=== PATIENT | female | born 1935 | race Caucasian/White ===

== ENCOUNTER 2017-02-22 08:32 | Inpatient (IN) | payer MEDICARE, BC ==
[~2017-02-22] VITALS: Ht 170.2 cm; Wt 63.9 kg
[2017-02-22] VITALS (7 sets, daily range): BP systolic 120–154; BP diastolic 50–58; PULSE 82–89; RESP 18; TEMP 96.5–97.6; O2SAT 88–97; Ht 170.2 cm; Wt 63.9 kg
[~2017-02-22 08:32] MED LIST: ALBU18HF2 ORAL INH; AMLO5TAB2 PO; ATOR40TA64 PO; CLOP75TA PO; DOCU-168 PO; FURO20TA4 PO; GUAI-782 PO; LEVO750T20 PO; LOSA50TA52 PO; MAGN400O4 PO; METO25TA6 PO; OMEP40CA PO; POTA20TA69 PO; PRED20TA PO
--- OUTSIDE RECORDS SUMMARY | 2017-02-22 08:36 | XMS REPORT | Continuity of Care Document ---
Author Author [facility] Organization [facility] Address Unknown Phone Unavailable Support Name Relationship Address Phone FRITZ JAVED MD Caregiver [address] [place] [address] [place] [address] Unavailable ERNESTO FUCHS MD Caregiver [address] [place] [id number] Unavailable FELIX BARRERA DO Caregiver [address] [place] [address] Unavailable NARCISA RODRIGUEZ MD Caregiver [address] [place] [address] [employer] [place] [address] Unavailable ALEJA ROJAS Next Of Kin [address] [place] [address] Insurance Providers Guarantor Ana Marte Address [address] [place] [address] Email [email or web address] Payer Medicare Policy Number [id number] Subscriber's Name Ana Marte Relationship 18 Self Effective Date [facility] Policy Number [id number] Subscriber's Name EstuardoEarle pickardpat Fritz Relationship 18 Self Group Number [id number] Advance Directives Directive Response Recorded Date/Time Advanced Directives Type None 12/24/16 1:01am Ordered Resuscitation Status Full Code 12/24/16 3:34am Resuscitation Documents on File No 12/28/16 12:41pm DPOA for Healthcare Only Yes 12/28/16 12:41pm Living Will No 12/28/16 12:41pm Advanced Directive or Resuscitation Comments SEDATED 12/24/16 6:36am Problems Active Problems Medical Problem Onset Date Status Acute respiratory failure Unknown Acute Acute respiratory failure with hypoxia Unknown Acute Anemia Unknown Chronic Congestive heart failure Unknown Acute Congestive heart failure Unknown Acute Constipation Unknown Acute 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 Chronic 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 Unknown Chronic Diastolic heart failure Unknown Chronic Febrile illness, acute Unknown Acute GERD (gastroesophageal reflux disease) Unknown Chronic Gastroparesis Unknown Hyperkalemia Unknown Resolved Hyperlipidemia Unknown Chronic Hypertension Unknown Chronic Hypoxia Unknown Acute Leukocytosis Unknown Acute Pneumonia Unknown Acute Psoriasis Unknown Chronic RSV infection Unknown Acute Retro-orbital pain of left eye Unknown Acute Right lower lobe pneumonia Unknown Acute Severe sepsis Unknown Resolved Steroid-induced hyperglycemia Unknown Acute Ulcer of upper gastrointestinal tract Unknown Urinary retention Unknown Acute Surgical Problem Onset Date Status History of renal stent Unknown Chronic S/P AVR Unknown Chronic Past Problems Medical Problem Onset Date Bronchitis Unknown Bronchitis Unknown Bronchospasm Unknown Hypoxemia Unknown Respiratory distress Unknown Medications Current Home Medications Medication Dose Units Route Directions Days Qty Instructions Start Date Albuterol Sulfate (Ventolin Hfa 90 Mcg/Actuation) 18 Gm Hfa.aer.ad 2 Puff Oral Inhalation Every 4 Hours as needed for Shortness Of Air/Wheezing 1 Inhaler 12/21/16 Amlodipine Besylate 5 Mg Tablet 5 Mg Oral Daily 07/08/15 Atorvastatin Calcium 40 Mg Tablet 40 Mg Oral Bedtime 12/21/16 Clopidogrel Bisulfate (Plavix) 75 Mg Tablet 75 Mg Oral Daily Docusate Sodium (Colace) 100 Mg Capsule 100 Mg Oral Twice A Day for Constipation 60 Capsule 01/02/17 Furosemide 20 Mg Tablet 20 Mg Oral Twice A Day 10/09/15 Guaifenesin/Dextromethorphan (Mucinex Dm Er 600-30 Mg Tablet) 1 Each Tab.er.12h 1 Tab Oral Every 12 Hours 20 Tablet 01/02/17 Levofloxacin (Levaquin) 750 Mg Tablet 750 Mg Oral Every Other Day for Pneumonia 2 01/02/17 Losartan Potassium 50 Mg Tablet 50 Mg Oral Daily for Hypertension 30 Tablet 01/02/17 Magnesium Hydroxide (Milk Of Magnesia) 400 Mg/5 Ml Oral.susp 30 Ml Oral Daily as needed for Constipation 1 Bottle 01/02/17 Metoprolol Tartrate 25 Mg Tablet 25 Mg Oral Twice Daily With Meals for Hypertension 60 Tablet 01/02/17 Omeprazole (Prilosec) 40 Mg Capsule.dr 40 Mg Oral Daily 07/08/15 Potassium Chloride 20 Meq Tab.prt.sr 20 Meq Oral Twice A Day 11/01 Prednisone 20 Mg Tablet 40 Mg Oral Give With Breakfast for Pneumonia/ Bronchospasm 20 Tablet Take 2 (20 mg) tablets, by mouth, once a day with breakfast. 01/02/17 Past Home Medications Medication Directions Ordered Status Azithromycin 250 Mg Tablet, 1 Pack Oral As Directed 12/21/16 Discontinued Calcium Carb & Cit/Vitamin D3 (Calcium + D3 Er Tablet) 1 Each Tablet.er, 1 Tab Oral Daily 07/08/15 Discontinued Metoprolol Tartrate 25 Mg Tablet, 12.5 Mg Oral Twice Daily With Meals Discontinued Pantoprazole Sodium (Protonix) 40 Mg Tablet.dr, 40 Mg Oral Daily 02/21/10 Discontinued Social History Social History Problem Response Recorded Date/Time Onset Date Status Reason for Hospitalization Acute respiratory failure with hypoxia 01/02/2017 1:50pm Not Applicable Not Applicable Hx Substance Use No 12/24/2016 3:47am Not Applicable Not Applicable Hx Alcohol Use No 12/24/2016 3:47am Not Applicable Not Applicable Has the pt used tobacco in the last 12 months No 12/24/2016 6:37am Not Applicable Not Applicable Tobacco Usage none 11/10/2015 11:09am Not Applicable Not Applicable Query Response Start Date Stop Date Smoking Status Never smoker Hospital Discharge Instructions Instructions: Care Instructions: Reason for Hospitalization: Acute respiratory failure with hypoxia I was in the hospital because (patient own words): SEDATED Discharge Diet: Low sodium Discharge Activity: As tolerated Follow Up Appointments: Dr Barrera in 1 week pt will make own appointment Pending Lab / Results: No Pending Lab Patient Instructions: Use Acapella 4 times a day for 10 days, then as needed for congestion. Take Levaquin 750mg on 01/03 and 01/05. Wound/Incision Care: n/a Durable Medical Equipment: O2 at 3L with rest/sleeping; 5L with ambulation. Pain Management/Treatment: Tylenol as needed Expected Signs/Symptoms: Improvement of breathing and functional status Notify Physician If: Temp > 100.4. Increased difficulty breathing. During Business Hours:: Please call the physician's office at After Business Hours:: Please call [phone] and have the ammonia operator page the physician. Condition at time of discharge: Good Plan of Care Discharge Date 01/02/17 5:28pm Disposition 01 DISCHARGED HOME, SELF-CARE Instructions/Education Provided Respiratory Syncytial Virus (GEN) Acute Bronchitis (ED) Hypoxia (ED) Prescriptions See Medication Section Care Plan and Goals See Discharge Instructions Section Functional Status Query Response Date Recorded Mobility Status Ambulatory January 02, 2017 1:50pm Assistive Devices Standard Walker January 02, 2017 1:50pm Activity Limitations Shortness of breath Cough January 02, 2017 1:50pm Feeding Ability Independent January 02, 2017 1:50pm Toileting Ability Assist January 02, 2017 1:50pm Grooming Ability Independent January 02, 2017 1:50pm Dressing Ability Assist January 02, 2017 1:50pm Driving Ability Dependent January 02, 2017 1:50pm Housework Ability Assist January 02, 2017 1:50pm Meal Preparation Ability Assist January 02, 2017 1:50pm Stair Climbing Ability Assist January 02, 2017 1:50pm Ability to complete ADL's impeded by No change January 02, 2017 1:50pm Cognitive/Perceptual Impairments Impaired vision January 02, 2017 1:50pm Allergies, Adverse Reactions, Alerts Allergen Type Severity Reaction Status Last Updated Benazepril Adverse Reaction Mild CAUSES DRY MOUTH, COUGH Active 12/24/16 Telithromycin Allergy Severe SWELLING OF FACE Active 12/24/16 Immunizations Query Response on File Recorded Date/Time Hx Influenza Vaccination Y 10/07/2015 12/24/16 6:37am Hx Pneumococcal Vaccination N sep 2015 12/24/16 6:37am Hx Influenza Vaccination Y 10/07/2015 12/24/16 6:37am Influenza Vaccine Hx fall 201512/26/16 12:00pm Vital Signs Acute Vital Signs Vital Response Date/Time Temperature (Fahrenheit) 95.8 deg F (96.8 - 99.1) 01/02/2017 7:51am Temperature (Calculated Celsius) 35.79719 degrees C (36.0 - 37.3) 01/02/2017 7:51am Pulse Rate (adult) 86 bpm (60 - 100) 01/02/2017 11:44am Respiratory Rate 20 breaths/min (10 - 20) 01/02/2017 8:00am O2 Sat by Pulse Oximetry 91 % (90 - 100) 01/02/2017 7:51am Oxygen Delivery Method Nasal Cannula 01/01/2017 8:08am Oxygen Delivery Method Nasal Cannula 01/02/2017 7:51am Oxygen Flow Rate 3.00 L/min 01/02/2017 11:44am Fraction of Inspired Oxygen (FIO2) 35 % 01/01/2017 3:03am Blood Pressure 151/68 mm Hg 01/02/2017 7:51am Blood Pressure Source Automatic Cuff 01/02/2017 7:51am Height (Feet) 5 feet 01/02/2017 10:45am Height (Inches) 5.00 inches 01/02/2017 10:45am Weight (Kilograms) 65.500 kg 01/02/2017 8:00am Body Mass Index (BMI) 24.3 12/24/2016 9:34am Results Laboratory Results Test Name Result Units Flags Reference Collection Date/Time Result Date/ Time Comments White Blood Count 9.0 T/MM3 4.5-11.0 01/02/2017 4:47am 01/02/2017 5: 18am Red Blood Count 3.88 M/MM3 L 4.00-5.20 01/02/2017 4:47am 01/02/2017 5: 18am Hemoglobin 10.1 GM/DL L 12-16 01/02/2017 4:47am 01/02/2017 5:18am Hematocrit 33.6 % L 36-46 01/02/2017 4:47am 01/02/2017 5:18am Mean Corpuscular Volume 86.6 UM3 80-100 01/02/2017 4:47am 01/02/2017 5: 18am Mean Corpuscular Hemoglobin 26.0 UUG 26-34 01/02/2017 4:47am 2016 5:18am Mean Corpuscular Hemoglobin Concent 30.1 GM/DL L 31-37 01/02/2017 4:47am 01/02/2017 5:18am RDW Standard Deviation 50.9 FL H 36.9-50.2 01/02/2017 4:47am 01/02/2017 5:18am Platelet Count 124 T/MM3 L 130-400 01/02/2017 4:47am 01/02/2017 5:18am Mean Platelet Volume 10.9 UM3 9.4-12.4 01/02/2017 4:47am 01/02/2017 5: 18am Neutrophils (%) (Auto) 82.9 % H 33-66 12/30/2016 5:00am 12/30/2016 6: 09am Lymphocytes (%) (Auto) 6.6 % L 23-45 12/30/2016 5:00am 12/30/2016 6: 09am Monocytes (%) (Auto) 7.9 % 0-9.0 12/30/2016 5:00am 12/30/2016 6:09am Eosinophils (%) (Auto) 0.2 % 0-4 12/30/2016 5:00am 12/30/2016 6:09am Basophils (%) (Auto) 0.1 % 0-2 12/30/2016 5:00am 12/30/2016 6:09am Immature Granulocyte % (Auto) 2.3 % H 0.0-0.5 12/30/2016 5:00am 2016 6:09am Absolute Neutrophils (auto) 11.7 T/MM3 H 1.8-7.7 12/30/2016 5:00am 12/30 6:09am Absolute Lymphocytes (auto) 0.9 T/MM3 L 1-4.8 12/30/2016 5:00am 2016 6:09am Absolute Monocytes (auto) 1.1 T/MM3 H 0-0.8 12/30/2016 5:00am 2016 6:09am Absolute Eosinophils (auto) 0.0 T/MM3 0-0.5 12/30/2016 5:00am 2016 6:09am Absolute Basophils (auto) 0.0 T/MM3 0-0.2 12/30/2016 5:00am 12/30/2016 6:09am Absolute Immature Granulocyte (auto 0.32 T/MM3 H 0.00-0.03 12/30/2016 5: 00am 12/30/2016 6:09am Neutrophils % (Manual) 87.0 % H 33-66 01/02/2017 4:47am 01/02/2017 6: 35am Band Neutrophils % 2.0 % 0-6 01/01/2017 4:47am 01/01/2017 6:29am Lymphocytes % (Manual) 10.0 % L 23-45 01/02/2017 4:47am 01/02/2017 6: 35am Monocytes % (Manual) 5.0 % 0-9.0 01/01/2017 4:47am 01/01/2017 6:29am Eosinophils % (Manual) 1.0 % 0-4 01/01/2017 4:47am 01/01/2017 6:29am Metamyelocytes % 3.0 % H 0-0 01/02/2017 4:47am 01/02/2017 6:35am Myelocytes % 1.0 % H 0-0 01/01/2017 4:47am 01/01/2017 6:29am Band Neutrophils # 0.2 T/MM3 01/01/2017 4:47am 01/01/2017 6:29am Absolute Neutrophils (Manual) 7.8 T/MM3 H 1.8-7.7 01/02/2017 4:47am 08/2017 6:35am Lymphocytes # (Manual) 0.9 T/MM3 L 1-4.8 01/02/2017 4:47am 01/02/2017 6: 35am Monocytes # (Manual) 0.5 T/MM3 0-0.8 01/01/2017 4:47am 01/01/2017 6: 29am Eosinophils # (Manual) 0.1 T/MM3 0-0.5 01/01/2017 4:47am 01/01/2017 6: 29am Metamyelocytes # 0.3 T/MM3 01/02/2017 4:47am 01/02/2017 6:35am Myelocytes # 0.1 T/MM3 01/01/2017 4:47am 01/01/2017 6:29am Red Cell Morphology Comment NORMAL 01/02/2017 4:47am 01/02/2017 6: 35am Anisocytosis 1+ 01/01/2017 4:47am 01/01/2017 6:29am Poikilocytosis 1+ 12/29/2016 4:34am 12/29/2016 5:38am Icterus Index < 2 0-7 01/02/2017 4:47am 01/02/2017 5:27am Chemistry Specimen Hemolysis < 15 0-25 01/02/2017 4:47am 01/02/2017 5 :27am 0-25: Specimen Exhibited No Hemolysis. Turbidity < 20 0-20 01/02/2017 4:47am 01/02/2017 5:27am Sodium Level 139 MEQ/L 134-144 01/02/2017 4:47am 01/02/2017 5:27am Potassium Level 3.6 MEQ/L 3.6-5 01/02/2017 4:47am 01/02/2017 5:27am Chloride Level 105 MEQ/L 98-107 01/02/2017 4:47am 01/02/2017 5:27am Carbon Dioxide Level 27 MEQ/L 22-30 01/02/2017 4:47am 01/02/2017 5: 27am Anion Gap 7 MEQ/L 5-15 01/02/2017 4:47am 01/02/2017 5:27am Blood Urea Nitrogen 30.0 MG/DL H 7-17 01/02/2017 4:47am 01/02/2017 5: 27am Creatinine 0.7 MG/DL D 0.7-1.2 01/02/2017 4:47am 01/02/2017 5:29am BUN/Creatinine Ratio 43 RATIO H 6-26 01/02/2017 4:47am 01/02/2017 5: 27am Glomerular Filtration Rate Calc 80 01/02/2017 4:47am 01/02/2017 5: 27am Glucose Level 89 MG/DL 65-110 01/02/2017 4:47am 01/02/2017 5:27am Calculated Osmolality 273 MOSM/KG 261-280 01/02/2017 4:47am 01/02/2017 5:27am Calcium Level 8.7 MG/DL 8.4-10.2 01/02/2017 4:47am 01/02/2017 5:27am Total Bilirubin 0.70 MG/DL 0.20-1.30 12/26/2016 6:2412/26/2016 6: 50am Alkaline Phosphatase 92 U/L 38-126 12/26/2016 6:12/26/2016 6:50am Total Protein 7.3 G/DL 6.3-8.2 12/26/2016 6:12/26/2016 6:50am Albumin 3.7 G/DL 3.5-5.0 12/26/2016 6:12/26/2016 6:50am Globulin 3.6 G/DL 2.4-3.6 12/26/2016 6:12/26/2016 6:50am Albumin/Globulin Ratio 1.0 RATIO L 1.1-2.2 12/26/2016 6:12/26/2016 6:50am Aspartate Amino Transf (AST/SGOT) 30 U/L 14-36 12/26/2016 6:2016 6:50am Alanine Aminotransferase (ALT/SGPT) 34 U/L 9-52 12/26/2016 6:2412/26 6:50am LC-Mja-T-Type Natriuretic Peptide 3280 PG/ML H 0-175 12/24/2016 1:57am 12/24/2016 2:22am Rule in cut points: <50 years old=450; 50-75 years old=900; >75 years old=1800; When utilizing ProBNP rule-in cut points, adjustment for impaired renal function is typically not required. Magnesium Level 2.3 MG/DL 1.6-2.3 12/31/2016 5:03am 12/31/2016 5:59am Plasma Lactate 1.9 MMOL/L 0.6-2.2 12/24/2016 7:04am 12/24/2016 7:23am Procalcitonin < 0.05 NG/ML 12/24/2016 1:57am 12/24/2016 2:49am PCT < /=0.5 ng/mL - sepsis not likely; PCT >0.5 and </=2 ng/mL - sepsis possible; PCT >2 ng/mL - sepsis likely; PCT >/=10 ng/mL - systemic inflammatory response - sepsis or septic shock highly indicated. Iron Level 35 UG/DL L 37-170 12/29/2016 4:34am 12/31/2016 1:29am Total Iron Binding Capacity 345 UG/DL 261-497 12/29/2016 4:34am 2016 12:54am Percent Iron Saturation 10 % 9-55 12/29/2016 4:34am 12/31/2016 1:29am Ferritin 72.9 NG/ML 11-264 12/29/2016 4:34am 12/31/2016 2:07am Hemoglobin A1c 5.8 % L 6.1-7.9 12/25/2016 4:11am 12/25/2016 6:28am < 6.0 NON-DIABETIC RANGE 6.1-7.9 [facility] TARGET RANGE >8.0 ACTION SUGGESTED Oxygen Delivery Method (LAB) ROOM AIR 12/24/2016 7:04am 12/24/2016 7:12am Venous Blood pH 7.170 L 7.31-7.41 12/24/2016 7:04am 12/24/2016 7:12am Venous Blood Partial Pressure CO2 88 MMHG H 40-52 12/24/2016 7:04am 11/2016 7:12am Venous Blood Partial Pressure O2 52 MMHG 40-52 12/24/2016 7:04am 2016 7:12am Venous Blood HCO3 32 MEQ/L H 22-26 12/24/2016 7:04am 12/24/2016 7:12am Venous Blood Total Carbon Dioxide 34.8 MEQ/L 12/24/2016 7:04am 2016 7:12am Venous Blood Base Excess 1.2 MMOL/L -2.0-2.0 12/24/2016 7:04am 2016 7:12am Venous Blood Oxygen Saturation 76.0 % 12/24/2016 7:04am 12/24/2016 7: 12am Influenza Type A Antigen NEGATIVE NEGATIVE 12/24/2016 1:57am 2016 2:33am Negative for Flu A protein antigen. Assay sensitivity is 90%. Influenza Type B Antigen NEGATIVE NEGATIVE 12/24/2016 1:57am 2016 2:33am Negative for Flu B protein antigen. Assay sensitivity is 90%. Adenovirus (PCR) NEGATIVE NEGATIVE 12/24/2016 11:39am 12/24/2016 1: 12pm Coronavirus Type 229E (PCR) NEGATIVE NEGATIVE 12/24/2016 11:39am 11/2016 1:12pm Coronavirus Type HKU1 (PCR) NEGATIVE NEGATIVE 12/24/2016 11:39am 11/2016 1:12pm Coronavirus Type NL63 (PCR) NEGATIVE NEGATIVE 12/24/2016 11:39am 11/2016 1:12pm Coronavirus Type OC43 (PCR) NEGATIVE NEGATIVE 12/24/2016 11:39am 11/2016 1:12pm Human Metapneumovirus (PCR) NEGATIVE NEGATIVE 12/24/2016 11:39am 11/2016 1:12pm Enterovirus/Rhinovirus (PCR) NEGATIVE NEGATIVE 12/24/2016 11:39am 11/2016 1:12pm Influenza Virus Type A (PCR) NEGATIVE NEGATIVE 12/24/2016 11:39am 11/2016 1:12pm Influenza Virus Type B (PCR) NEGATIVE NEGATIVE 12/24/2016 11:39am 11/2016 1:12pm Parainfluenza Type 1 (PCR) NEGATIVE NEGATIVE 12/24/2016 11:39am 12/24 1:12pm Parainfluenza Type 2 (PCR) NEGATIVE NEGATIVE 12/24/2016 11:39am 12/24 1:12pm Parainfluenza Type 3 (PCR) NEGATIVE NEGATIVE 12/24/2016 11:39am 12/24 1:12pm Parainfluenza Type 4 (PCR) NEGATIVE NEGATIVE 12/24/2016 11:39am 12/24 1:12pm Respiratory Syncytial Virus (PCR) DETECTED A NEGATIVE 12/24/2016 11: 39am 12/24/2016 1:12pm Bordetella parapertussis DNA (PCR) NEGATIVE NEGATIVE 12/24/2016 11: 39am 12/24/2016 1:12pm Chlamydia pneumoniae DNA (PCR) NEGATIVE NEGATIVE 12/24/2016 11:39am 12/24/2016 1:12pm Mycoplasma pneumoniae (PCR) NEGATIVE NEGATIVE 12/24/2016 11:39am 11/2016 1:12pm Glucometer 103 mg/dL 65-110 01/02/2017 11:35am 01/02/2017 11:38am Microbiology Results Procedure Source Organism/Result Collection Date/Time Result Date/Time Result Status Blood Culture Peripheral/Iv Start NO GROWTH AFTER 5 DAYS 12/24/2016 11: 56am 12/29/2016 12:01pm Final Name: ANA MARTE Unit #: [id number] : 1935 Sex: F Admit Date: 12/24/16 Loc / Svc: MED Discharge Date: DIAGNOSTIC IMAGING REPORT [facility] [id number] ITS.REASON: F/U pleural effusions PROCEDURE: CHEST 2-VIEWS UPRIGHT (PA \T\ LAT) Encounter: Initial COMPARISON: December 30, 2016 FINDINGS: Improving aeration of the lung bases with decreasing pleural effusions, particularly on the right. No new infiltrates. No pneumothorax. Heart size and mediastinal contours are stable. Pulmonary vascular congestion has improved. Impression: Decreasing pleural effusions. . Procedures No known history of procedures. Encounters Encounter Location Arrival/Admit Date Discharge/Depart Date Attending Provider Discharged Inpatient [facility] 12/24/16 3:28am 01/02/17 5:28pm FRITZ JAVED MD Departed Emergency Room [facility] 12/21/16 10:37am 12/21/16 1: 03pm NEYDA PADRON MD
--- OUTSIDE RECORDS SUMMARY | 2017-02-22 08:36 | XMS REPORT | Continuity of Care Document ---
Author Author [facility] Address Unknown Phone Unavailable Allergies Active Description Code Type Severity Reaction Onset Reported/Identified Relationship to Patient Clinical Status Yes benazepril HCl benazepril HCl Drug Allergy Unknown DRY COUGH 01/21/2013 Yes Telithromycin Telithromycin Drug Allergy Severe SWELLING OF FACE 01/21/2013 Medications Problems Date Dx Coded Attending Type Code Diagnosis Diagnosed By 01/22/2013 Preeti ERNST, Daquan R F 038.9 SEPTICEMIA NOS 01/22/2013 Daquan Álvarez MD R F 272.4 HYPERLIPIDEMIA NEC/NOS 01/22/2013 Daquan Álvarez MD R F 276.7 HYPERPOTASSEMIA 01/22/2013 Daquan Álvarez MD R F 410.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,SUBENDO INFARCT, INITIAL EPIS 01/22/2013 Daquan Álvarez MD R 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 01/22/2013 Daquan Álvarez MD R F 414.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 01/22/2013 Daquan Álvarez MD R F 416.8 CHR PULMON HEART DIS NEC 01/22/2013 Daquan Álvarez MD R F 424.0 MITRAL VALVE DISORDER 01/22/2013 Daquan Álvarez MD R F 427.31 ATRIAL FIBRILLATION 01/22/2013 Daquan Álvarez MD R F 428.0 CONGESTIVE HEART FAILURE NOS 01/22/2013 Daquan Álvarez MD R F 428.33 ACUTE CHRONIC DIASTOLIC HRT FAILURE 01/22/2013 Daquan Álvarez MD R F 440.0 AORTIC ATHEROSCLEROSIS 01/22/2013 Daquan Álvarez MD R F 440.1 RENAL ARTERY ATHEROSCLER 01/22/2013 Daquan Álvarez MD R F 443.9 PERIPH VASCULAR DIS NOS 01/22/2013 Daquan Álvarez MD R F 486 PNEUMONIA, ORGANISM NOS 01/22/2013 Daquan Álvarez MD R F 496 CHR AIRWAY OBSTRUCT NEC 01/22/2013 Daquan Álvarez MD R F 518.84 ACUTE AND CHRONIC RESPIRATORY FAILURE 01/22/2013 Daquan Álvarez MD R F 530.81 ESOPHAGEAL REFLUX 01/22/2013 Daquan Álvarez MD R F 536.3 GASTROPARESIS 01/22/2013 Daquan Álvarez MD R F 995.92 SEVERE SEPSIS 01/22/2013 Daquan Álvarez MD 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 01/22/2013 Daquan Álvarez MD R F E878.1 ABN REACT-ARTIF IMPLANT 01/22/2013 Daquan Álvarez MD E942.2 ADV EFF ANTILIPEMICS 01/22/2013 Daquan Álvarez MD V15.81 HX OF PAST NONCOMPLIANCE 01/22/2013 Daquan Álvarez MD V15.82 HISTORY OF TOBACCO USE 01/22/2013 Dqauan Álvarez MD R F V45.81 AORTOCORONARY BYPASS 01/22/2013 Daquan Álvarez MD V46.2 SUPPLEMENTAL OXYGEN 01/22/2013 Daquan Álvarez MD V49.86 DO NOT RESUSCITATE STATUS Procedures Code Description Performed By Performed On 00.41 PROCEDURE ON TWO VESSELS Augustus Kirkpatrick MD 01/22/2013 00.46 INSERTION OF TWO VASCULAR STENTS Augustus Kirkpatrick MD 01/22/2013 39.50 ANGIOPLASTY OF OTHER NON-CORONARY VESSEL(S) Augustus Kirkpatrick MD 01/22/2013 39.90 INSEJ [id number] PERIPHERAL NON-CORONARY VES Augustus Kirkpatrick MD 01/22/2013 88.42 CONTRAST AORTOGRAM Topher Ryan MD 01/22/2013 88.45 CONTRAST RENAL ARTERIOGR Topher Ryan MD 01/22/2013 88.53 LT HEART ANGIOCARDIOGRAM Topher Ryan MD 01/22/2013 88.56 CORONAR ARTERIOGR-2 CATH Topher Ryan MD 01/22/2013 88.72 DX ULTRASOUND-HEART Topher Ryan MD 01/22/2013 Encounters ACCT No. Visit Date/Time Discharge Status Pt. Type Provider Facility Loc./Unit Complaint [id number] 11/03/2014 13:07:00 2013 13:07:00 DIS Outpatient Connor ERNST, Topher Bertrand [facility] W.RAC [id number] 01/22/2013 18:03:00 2012 14:44:00 DIS Inpatient Preeti ERNST, Daquan [facility] W.3CE [id number] 01/21/2013 07:37:00 2012 09:34:00 DIS Emergency Jesús ERNST, Jose Elias Fritz [facility] W.EDS [id number] 04/01/2011 11:45:00 Inpatient [id number] 12/31/2010 21:25:00 Inpatient
--- OUTSIDE RECORDS SUMMARY | 2017-02-22 08:36 | XMS REPORT | Continuity of Care Document ---
Author Author [facility] Organization [facility] Address Unknown Phone Unavailable Support Name Relationship Address Phone BELEM ZAFAR DO Caregiver [address] [place] [address] FELIX BARRERA DO Caregiver [address] [facility] [address] [place] [address] SAI RYAN MD Caregiver [address] [place] [phone] PRESTON BETANCOURT MD Caregiver [address] [place] [phone] ALEJA ROJAS Next Of Kin [address] [place] [address] Insurance Providers Payer Name Policy Number Subscriber Name Relationship Medicare [id number] Ana Marte 18 Self [facility] [id number] Ana Marte 18 Self Advance Directives Directive Response Recorded Date/Time Ordered Resuscitation Status Full Code, unverified 11/23/14 11:57am Resuscitation Documents on File No 11/23/14 12:16pm Chief Complaint and Reason for Visit Chief Complaint EXACERBATION CHF, HYPOXIA Reason for Visit Congestive heart failure Hypoxia Hyperlipidemia Problems Medical Problems Problem Onset Date Status Congestive heart failure Unknown Active Hypoxia Unknown Active Hyperlipidemia Unknown Active Medications Medication Dose Route Sig Days/Qty Instructions Order Date Discontinued Date Status Aspirin 1 Tab PO DAILY 07/04/10 Active Metoprolol Succinate 1 Tab PO DAILY 07/04/10 Active Potassium Chloride 1 Tab PO TWICE A DAY 07/04/10 Active Simvastatin 1 Tab PO DAILY 07/04/10 Active Sucralfate 1 G PO NEEDED 07/04/10 Active Pantoprazole Sodium 40 Mg PO DAILY 02/21/10 07/03/10 Discontinued Ferrous Sulfate 1 Tab PO DAILY BEST WITH FOOD. 11/23/14 Active Furosemide 1 Tab PO DAILY 11/23/14 Active Cephalexin 1 Cap PO TWICE A DAY 5 Days 11/24/14 Active Social History Social History Problem Response Recorded Date/Time Hx Substance Use No 11/23/2014 11:30am Hx Alcohol Use No 11/23/2014 11:30am Has the pt used tobacco in the last 12 months No 11/23/2014 12:20pm Tobacco Usage none 11/23/2014 4:14pm Query Response Start Date Stop Date Smoking Status Former smoker Hospital Discharge Instructions Instructions: Care Instructions: Reason for Hospitalization: PULMONARY EDEMA I was in the hospital because (patient own words): "I WAS COLLECTING WATER" Discharge Diet: LOW SODIUM, FLUID RESTRICTION OF 2L PER DAY Discharge Activity: TOLERATED Follow Up Appointments: FOLLOW UP APPOINTMENT WITH IS ON Thursday11-30-14 AT 12:30 PM. Patient Instructions: SHOULD YOUR SYMPTOMS RETURN YOU SHOULD CONTACT DR RYAN OR DR BARRERA THROUGH THE OFFICE OR RETURN TO THE ED FOR EMERGENT EVALUATION Condition at time of discharge: Good Dismissal Weight: 3.655 Bilirubin Level: 10.0 Congenital Heart Disease Screening Result: Pass Plan of Care Discharge Date 11/24/14 1:39pm Disposition 01 DISCHARGED HOME, SELF-CARE [place] [facility] [place]estive Heart Failure Congestive Heart Failure (Alternative Therapy) Edema (Alternative Therapy) DI for Oxygen Therapy -- Adult How to Perform Oxygen Therapy via Cannula Prescriptions See Medications Section Functional Status Query Response Date Recorded Physical Hygiene Self November 23, 2014 11:30am Disabilities Hearing Visual November 23, 2014 11:52am Devices Used None November 23, 2014 11:52am Dressing Self November 23, 2014 11:30am Ambulation Self November 23, 2014 11:30am Diet Self November 23, 2014 11:30am Mental Status Alert Oriented November 23, 2014 11:53am Disabilities Hearing Visual November 23, 2014 11:52am Devices Used None November 23, 2014 11:52am Physical Hygiene Self November 23, 2014 11:30am Dressing Self November 23, 2014 11:30am Ambulation Self November 23, 2014 11:30am Diet Self November 23, 2014 11:30am Allergies, Adverse Reactions, Alerts Allergen Type Severity Reaction Status Last Updated Benazepril Adverse Reaction Mild CAUSES DRY MOUTH, COUGH Active 11/23/14 Amlodipine Adverse Reaction Mild CAUSES DRY MOUTH, COUGH Active 11/23/14 Telithromycin Allergy Severe SWELLING OF FACE Active 11/23/14 Immunizations Name Given Type Hx Influenza Vaccination Y AUG 2014 Historical Hx Pneumococcal Vaccination N 2008 Historical Hx Influenza Vaccination Y AUG 2014 Historical Vital Signs Acute Vital Signs Vital Response Date/Time Temperature (Fahrenheit) 96.6 deg F (96.8 - 99.1) Temperature (Calculated Celsius) 35.69437 degrees C (36.0 - 37.3) Temperature Source Oral Pulse Rate (adult) 98 bpm (60 - 100) Respiratory Rate 16 breaths/min (10 - 20) O2 Sat by Pulse Oximetry 86 % (90 - 100) Oxygen Delivery Method Nasal Cannula Oxygen Flow Rate 2.00 L/min Height 5 ft 7 in Weight 163 lb Body Mass Index 25.0 kg/m^2 Results Test Source Date Result Interp. Ref. Range Comments Influenza Type B Antigen November 24, 2014 11:14am Negative - Negative for Flu B protein antigen. Assay sensitivity is90%. Influenza Type A Antigen November 24, 2014 11:14am Negative - Negative for Flu A protein antigen. Assay sensitivity is90%. Activated Partial Thromboplast Time November 23, 2014 10:30am 33.7 SEC N 24-36 Alanine Aminotransferase (ALT/SGPT) November 23, 2014 10:30am 29 U/L N 9- 52 Albumin November 23, 2014 10:30am 4.4 G/DL N 3.5-5.0 Albumin/Globulin Ratio November 23, 2014 10:30am 1.3 RATIO N 1.1-2.2 Alkaline Phosphatase November 23, 2014 10:30am 113 U/L N 38-126 Anion Gap November 24, 2014 5:17am 4 MEQ/L L 5-15 Aspartate Amino Transf (AST/SGOT) November 23, 2014 10:30am 32 U/L N 14- 36 B-Type Natriuretic Peptide December 30, 2010 11:10am 428 PG/ML H 15-100 BUN/Creatinine Ratio November 24, 2014 5:17am 33 RATIO H 6-26 Band Neutrophils # December 31, 2010 7:03pm 0.2 T/MM3 - Band Neutrophils % December 31, 2010 7:03pm 2.0 % N 0-6 Basophils # (Auto) November 24, 2014 5:17am 0.1 T/MM3 N 0-0.2 Basophils # (Manual) December 31, 2010 7:03pm 0.2 T/MM3 N 0-0.2 Basophils % (Manual) December 31, 2010 7:03pm 2.0 % N 0-2 Basophils (%) (Auto) November 24, 2014 5:17am 0.4 % N 0-2 Blood Urea Nitrogen November 24, 2014 5:17am 23.0 MG/DL H 7-17 Calcium Level November 24, 2014 5:17am 8.5 MG/DL N 8.4-10.2 Calculated Osmolality November 24, 2014 5:17am 278 MOSM/KG N 261-280 Carbon Dioxide Level November 24, 2014 5:17am 38 MEQ/L H 22-30 Chemistry Specimen Hemolysis November 24, 2014 5:17am < 15 0-25 0-25: No Hemolysis.26-70: Slight Hemolysis - can falsely elevate K and Urine Protein. 71-285: Moderate Hemolysis - can falsely elevate K, Troponin I, CA 19-9, PTH, CSF GLucose, and Urine Protein, and can falsely decrease Phenytoin. 286-999: Gross Hemolysis - can falsely elevate K, Troponin I, CA 19-9, PTH, CSF Glucose, and Urine Protine, and can falsely decrease Phenytoin. Recommend specimen recollection. Chloride Level November 24, 2014 5:17am 99 MEQ/L N 98-107 Cholesterol Level May 28, 2009 8:45am 174 MG/DL N 132-199 Cholesterol/HDL Ratio May 28, 2009 8:45am 4.0 RATIO N 0-4.0 Creatine Kinase MB December 31, 2010 7:03pm 2.3 NG/ML N 0-3.4 Creatinine November 24, 2014 5:17am 0.7 MG/DL N 0.7-1.2 D-Dimer February 21, 2010 10:05am 271 NG/ML H 0-224 <224 NG/ML= PRESUMPTIVE NEGATIVE FOR PE OR DVT>224 NG/ML=ADDITIONAL EVALUATION FOR PE OR DVT RECOMMENDED Differential Total Cells Counted December 31, 2010 7:03pm 100 % - Eosinophils # (Auto) November 24, 2014 5:17am 0.1 T/MM3 N 0-0.5 Eosinophils # (Manual) November 23, 2014 10:30am 0.1 T/MM3 N 0-0.5 Eosinophils % (Manual) November 23, 2014 10:30am 1.0 % N 0-4 Eosinophils (%) (Auto) November 24, 2014 5:17am 1.0 % N 0-4 Globulin November 23, 2014 10:30am 3.5 G/DL N 2.4-3.6 Glomerular Filtration Rate Calc November 24, 2014 5:17am 80 - Glucose Level November 24, 2014 5:17am 159 MG/DL H 65-110 HDL Cholesterol Direct May 28, 2009 8:45am 39 MG/DL L 40-60 Hematocrit November 24, 2014 5:17am 38.3 % N 36-46 Hemoglobin November 24, 2014 5:17am 12.0 GM/DL N 12-16 Icterus Index November 24, 2014 5:17am < 2 0-7 Immature Granulocyte # (Auto) November 24, 2014 5:17am 0.04 T/MM3 H 0.00- 0.03 Immature Granulocyte % (Auto) November 24, 2014 5:17am 0.3 % N 0.0-0.5 LDL Cholesterol, Calculated May 28, 2009 8:45am 111.8 N 66-159 Lab Scanned Report January 24, 2011 10:20pm LAB TEST FORM REQUEST [id number] - Lymphocytes # (Auto) November 24, 2014 5:17am 0.8 T/MM3 L 1-4.8 Lymphocytes # (Manual) November 23, 2014 10:30am 0.6 T/MM3 L 1-4.8 Lymphocytes % (Manual) November 23, 2014 10:30am 5.0 % L 23-45 Lymphocytes (%) (Auto) November 24, 2014 5:17am 6.2 % L 23-45 Magnesium Level November 23, 2014 10:30am 2.3 MG/DL N 1.6-2.3 Mean Corpuscular Hemoglobin November 24, 2014 5:17am 30.9 UUG N 26-34 Mean Corpuscular Hemoglobin Concent November 24, 2014 5:17am 31.3 GM/DL N 31-37 Mean Corpuscular Volume November 24, 2014 5:17am 98.7 UM3 N 80-100 Mean Platelet Volume November 24, 2014 5:17am 10.2 UM3 N 9.4-12.4 Metamyelocytes # February 22, 2010 5:00am 0.1 T/MM3 - Metamyelocytes % February 22, 2010 5:00am 1.0 % H 0-0 Monocytes # (Auto) November 24, 2014 5:17am 1.0 T/MM3 H 0-0.8 Monocytes # (Manual) November 23, 2014 10:30am 0.2 T/MM3 N 0-0.8 Monocytes % (Manual) November 23, 2014 10:30am 2.0 % N 0-9.0 Monocytes (%) (Auto) November 24, 2014 5:17am 7.0 % N 0-9.0 Myelocytes # February 22, 2010 5:00am 0.0 T/MM3 - Myelocytes % February 22, 2010 5:00am 0.0 % N 0-0 QY-Isi-G-Type Natriuretic Peptide November 23, 2014 10:30am 4010 PG/ML H 0-175 Rule in cut points: <50 years old=450; 50-75 years old=900; >75 years old=1800; When utilizing ProBNP rule-in cut points, adjustment for impaired renal function is typically not required. Neutrophils # (Auto) November 24, 2014 5:17am 11.6 T/MM3 H 1.8-7.7 Neutrophils # (Manual) November 23, 2014 10:30am 10.3 T/MM3 H 1.8-7.7 Neutrophils % (Manual) November 23, 2014 10:30am 92.0 % H 33-66 Neutrophils (%) (Auto) November 24, 2014 5:17am 85.1 % H 33-66 Platelet Count November 24, 2014 5:17am 176 T/MM3 N 130-400 Potassium Level November 24, 2014 5:17am 3.9 MEQ/L N 3.6-5 Prothromb Time International Ratio November 23, 2014 10:30am 1.08 N 0.81- 1.09 THERAPUTIC RANGE=2.00-3.00 FOR ANTI-THROMBOSIS THERAPUTIC RANGE=2.50- 3.50 FOR IMPLANTED VALVE RDW Standard Deviation November 24, 2014 5:17am 51.2 FL H 36.9-50.2 Red Blood Count November 24, 2014 5:17am 3.88 M/MM3 L 4.00-5.20 Sodium Level November 24, 2014 5:17am 141 MEQ/L N 134-144 Stool Occult Blood January 27, 2010 8:41pm Test not performedPATIENT ON MEDS FOR COLONOSCOPY CANNOT PERFORM TEST - Tests Not Done February 21, 2010 10:25am Not done - Has specimen been collected/obtained? Y Thyroid Stimulating Hormone (TSH) November 23, 2014 10:30am 1.08 MIU/L N 0.47-4.68 Total Bilirubin November 23, 2014 10:30am 0.90 MG/DL N 0.20-1.30 Total Protein November 23, 2014 10:30am 7.9 G/DL N 6.3-8.2 Triglycerides Level May 28, 2009 8:45am 116 MG/DL N 35-135 Troponin I November 23, 2014 3:53pm 0.035 ng/ml N 0-0.12 Turbidity November 24, 2014 5:17am < 20 0-20 Urine Bacteria November 23, 2014 10:25am None seen - Has specimen been collected/obtained? Y Urine Bilirubin November 23, 2014 10:25am Negative - Has specimen been collected/obtained? Y Urine Blood November 23, 2014 10:25am Trace-intact H - Has specimen been collected/obtained? Y Urine Collection Type November 23, 2014 10:25am Cleancatch-midstream - Has specimen been collected/obtained? Y Urine Color November 23, 2014 10:25am Yellow - Has specimen been collected/obtained? Y Urine Glucose (UA) November 23, 2014 10:25am Negative - Has specimen been collected/obtained? Y Urine Ketones November 23, 2014 10:25am Negative - Has specimen been collected/obtained? Y Urine Leukocyte Esterase November 23, 2014 10:25am Negative - Has specimen been collected/obtained? Y Urine Mucus November 23, 2014 10:25am Present - Has specimen been collected/obtained? Y Urine Nitrite November 23, 2014 10:25am Negative - Has specimen been collected/obtained? Y Urine Protein November 23, 2014 10:25am 1+ H - Has specimen been collected/obtained? Y Urine RBC November 23, 2014 10:25am 0-1 /HPF - Has specimen been collected/obtained? Y Urine Specific [place] November 23, 2014 10:25am >=1.030 H - Has specimen been collected/obtained? Y Urine Squamous Epithelial Cells November 23, 2014 10:25am 0-5 - Has specimen been collected/obtained? Y Urine Turbidity November 23, 2014 10:25am Clear - Has specimen been collected/obtained? Y Urine Urobilinogen November 23, 2014 10:25am 0.2 EU/DL - Has specimen been collected/obtained? Y Urine WBC November 23, 2014 10:25am 0-1 /HPF - Has specimen been collected/obtained? Y Urine pH November 23, 2014 10:25am 5.5 - Has specimen been collected/ obtained? Y VLDL Cholesterol May 28, 2009 8:45am 23.2 MG/DL N 0-28 White Blood Count November 24, 2014 5:17am 13.6 T/MM3 H 4.5-11.0 Blood Culture Blood February 21, 2010 11:00am NO GROWTH AFTER 5 DAYS Gram Stain Sputum-Expectorated Sputum February 21, 2010 10:40am Helicobacter pylori Rapid Urease Gastric Biopsy July 04, 2010 1:01pm Name: ANA MARTE Unit #: [id number] : 1935 Sex: F DISCHARGE SUMMARY Admit Date: 11/23/14 Report #: [id number] General Date Date DATE: 11/24/14 TIME: 11:30 Attending Physician Belem Zafar DO Admitting Physician Belem Zafar DO Consulting Physician Sai Ryan MD Admitting Diagnosis Problems: (1) Congestive heart failure Status: Acute (2) Hypoxia Status: Acute--DUE TO CHF EXACERBATION/PULMONARY EDEMA (3) Hyperlipidemia Status: Chronic Discharge Diagnosis SAME Procedures NONE Laboratory Laboratory Laboratory Tests Test 11/23/14 11/24/14 15:53 05:17 Troponin I 0.035 ng/ml Chemistry Specimen Hemolysis < 15 < 15 White Blood Count 13.6 T/MM3 Red Blood Count 3.88 M/MM3 Hemoglobin 12.0 GM/DL Hematocrit 38.3 % Mean Corpuscular Volume 98.7 UM3 Mean Corpuscular Hemoglobin 30.9 UUG Mean Corpuscular Hemoglobin 31.3 GM/DL Concent RDW Standard Deviation 51.2 FL Platelet Count 176 T/MM3 Mean Platelet Volume 10.2 UM3 Immature Granulocyte % (Auto) 0.3 % Neutrophils (%) (Auto) 85.1 % Lymphocytes (%) (Auto) 6.2 % Monocytes (%) (Auto) 7.0 % Eosinophils (%) (Auto) 1.0 % Basophils (%) (Auto) 0.4 % Immature Granulocyte # (Auto) 0.04 T/MM3 Neutrophils # (Auto) 11.6 T/MM3 Lymphocytes # (Auto) 0.8 T/MM3 Monocytes # (Auto) 1.0 T/MM3 Eosinophils # (Auto) 0.1 T/MM3 Basophils # (Auto) 0.1 T/MM3 Turbidity < 20 Sodium Level 141 MEQ/L Potassium Level 3.9 MEQ/L Chloride Level 99 MEQ/L Carbon Dioxide Level 38 MEQ/L Anion Gap 4 MEQ/L Blood Urea Nitrogen 23.0 MG/DL Creatinine 0.7 MG/DL Glomerular Filtration Rate 80 Calc BUN/Creatinine Ratio 33 RATIO Glucose Level 159 MG/DL Calculated Osmolality 278 MOSM/KG Calcium Level 8.5 MG/DL Icterus Index < 2 History of Present Illness Ana is an 79-year-old female who just started seeing Dr. Felix Barrera for primary care. Yesterday she underwent a heart catheterization here at [facility] in the care of Dr. Ryan. Family reports finding showed 50% blockage. Patient has a history of CHF and she routinely takes oral Bumex they report 2 times a day. Yesterday, however, she did not take the Bumex because she underwent the heart cath. Family reports sometimes after procedures or surgeries, she has a tendency to go into a CHF exacerbation because of missing dosages. Patient reports feeling the symptoms intensified because she was required to lie flat after the heart catheterization. Overnight, around 1:30 AM, patient developed some dry heaving and was short of air. She complained of her left arm hurting. This morning family had her brought to [facility] for evaluation. They state she looks "puffy." Sats were noted to be in the 70s by ER nursing report. Vital signs in the ER are documented as blood pressure 180/76, temperature 97.6, respiratory rate 28, sats 96% on 2 L of oxygen. Labwork was obtained showing a mildly elevated white count of 11.2. Chest x-ray was performed showed some congestion but no obviously identifiable infiltrates. Troponin was 0.028. EKG showed sinus rhythm at 81 beats per minute. Patient was given aspirin 3 or 24 mg orally, Zofran 4 mg IV and Bumex 1 mg IV for diuresis. She was admitted inpatient under the care of the hospitalist service for exacerbation of CHF. Expected length of stay moderate, anticipating greater than 2 midnights. Hospital Course PT WAS ADMITTED TO THE OUTPT UNIT UNDER THE HOSPITALIST SERVICE, SHE WAS GIVEN IV BUMEX BID AND DID DIURESE OVER 2L--DROPPED 2# OVERNIGHT. SHE DID HAVE A SLIGHTLY ELEVATED WBC COUNT. CXR AND UA WERE CLEAR, AND HER GROIN SITE LOOKS GOOD. SHE WAS AFEBRILE. WE DID GIVE A DOSE OF EMPIRIC ABX (ROCEPHIN ) DUE TO HER RECENT PROCEDURE. IN THE PAST WHEN THIS HAS HAPPENED PT HAS HAD TO GO HOME WITH O2 FOR A FEW WEEKS. SHE IS REALLY WANTING TO GO HOME AND FEELS SHE CAN MANAGE THERE WITH HOME O2. SHE HAS GOOD FAMILY SUPPORT WELL. WE DID GO AHEAD AND SET HER UP FOR HOME O2, AND A RX FOR KEFLEX WAS GIVEN WELL. SHE IS TO SEE DR RYAN NEXT WEEK--AN APPT WAS MADE. SHE IS TOLD BY ME THAT IF SHE CONTINUES TO WORSEN SHE SHOULD RETURN TO THE ED FOR EVALUATION. SHE COULD ALSO CONTACT DR RYAN OR DR BARRERA WELL. Problems: DVT Prophylaxis: SCD'S GI Prophylaxis: Protonix Code Status Full Code, unverified Home Meds Active Scripts Cephalexin (Keflex)500 Mg Capsule1 Cap PO BID 5 Days Prov:BELEM ZAFAR DO 11/24/14 Reported Medications Furosemide 40 Mg Tablet1 Tab PO DAILY 11/23/14 Ferrous Sulfate (Iron)325 Mg Capsule.er1 Tab PO DAILY BEST WITH FOOD. 11/23/14 Sucralfate (Carafate)1 G Tablet1 G PO PRN Ref 0 07/04/10 Simvastatin 40 Mg Tablet1 Tab PO DAILY Ref 0 07/04/10 Potassium Chloride 20 Meq Tab.prt.sr1 Tab PO BID Ref 0 07/04/10 Metoprolol Succinate 50 Mg Tab.sr.24h1 Tab PO DAILY Ref 0 07/04/10 Aspirin (Aspir 81)81 Mg Tablet.dr1 Tab PO DAILY Ref 0 07/04/10 Discharge Disposition STABLE Copies To 1: FELIX BARRERA DO Copies To 2: SAI RYAN MD, CARRIE DO Nov 24, 2014 11:36 Procedures No known history of procedures. Encounters Encounter Location Date/Time Discharged Inpatient [facility] 11/23/14 1:15pm Departed [facility] 11/22/14 6:51am Recent Diagnosis Congestive heart failure Hypoxia Hyperlipidemia
[2017-02-22] MEDS ORDERED: ALBUTEROL/IPRATROPIUM INHAL. 2.5mg-0.5mg/3ml Neb. AEROSOL ONE (09:15)
[2017-02-22 09:17] LABS: BASOPHILS # (AUTO) 0.1 T/MM3 (0-0.2); BASOPHILS % (AUTO) 0.8 % (0-2); EOSINOPHILS # (AUTO) 0.1 T/MM3 (0-0.5); HCT - HEMATOCRIT 35.7 % (36-46); HGB - HEMOGLOBIN 10.9 GM/DL (12-16); IMMATURE GRANULOCYTE # (AUTO) 0.04 T/MM3 (0.00-0.03); IMMATURE GRANULOCYTE % (AUTO) 0.6 % (0.0-0.5); LYMPHOCYTES % (AUTO) 15.8 % (23-45); MEAN CORPUSCULAR HGB 27.6 UUG (26-34); MEAN CORPUSCULAR HGB CONC(MCHC 30.5 GM/DL (31-37); MEAN CORPUSCULAR VOLUME 90.4 UM3 (80-100); MEAN PLATELET VOLUME 9.8 UM3 (9.4-12.4); MONOCYTES # (AUTO) 0.7 T/MM3 (0-0.8); MONOCYTES % (AUTO) 11.2 % (0-9.0); NEUTROPHILS #(AUTO)-ABSOLUTE 4.4 T/MM3 (1.8-7.7); NEUTROPHILS % (AUTO) 70.6 % (33-66); RED BLOOD COUNT 3.95 M/MM3 (4.00-5.20); WBC - WHITE BLOOD COUNT 6.3 T/MM3 (4.5-11.0)
[2017-02-22] MEDS ORDERED: ALBU18HF2 ORAL INH (09:24)
[2017-02-22] MEDS ORDERED: GUAI120015 PO (09:24)
--- OUTSIDE RECORDS SUMMARY | 2017-02-22 09:24 | XMS REPORT | Continuity of Care Document ---
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53 LT HEART ANGIOCARDIOGRAM Topher Ryan MD 01/22/2013 88.56 CORONAR ARTERIOGR-2 CATH Topher Ryan MD 01/22/2013 88.72 DX ULTRASOUND-HEART Topher Ryan MD 01/22/2013 Encounters ACCT No. Visit Date/Time Discharge Status Pt. Type Provider Facility Loc./Unit Complaint [id number] 11/03/2014 13:07:00 2013 13:07:00 DIS Outpatient Connor ERNST, Topher Bertrand [facility] W.RAC [id number] 01/22/2013 18:03:00 2012 14:44:00 DIS Inpatient Preeti ERNST, Daquan Centeno [facility] W.3CE [id number] 01/21/2013 07:37:00 2012 09:34:00 DIS Emergency Jesús ERNST, Jose Elias Fritz [facility] W.EDS [id number] 04/01/2011 11:45:00 Inpatient [id number] 12/31/2010 21:25:00 Inpatient
[2017-02-22 09:25] LABS: ANION GAP 11 MEQ/L (5-15); BUN/CREATININE RATIO 26 RATIO (6-26); CALCIUM 8.1 MG/DL (8.4-10.2); CHLORIDE 99 MEQ/L (98-107); CO2 - CARBON DIOXIDE 31 MEQ/L (22-30); CREATININE 0.7 MG/DL (0.7-1.2); GLOMERULAR FILTRATION RATE 80; GLUCOSE 113 MG/DL (65-110); POTASSIUM 4.6 MEQ/L (3.6-5); SODIUM 141 MEQ/L (134-144)
--- OUTSIDE RECORDS SUMMARY | 2017-02-22 09:25 | XMS REPORT | Continuity of Care Document ---
Author Author [facility] Organization [facility] Address Unknown Phone Unavailable Support Name Relationship Address Phone BELEM ZAFAR DO Caregiver [address] [place] [address] FELIX BARRERA DO Caregiver [address] [facility] [address] [place] [address] SAI RYAN MD Caregiver [address] [place] [phone] PRESTON BETANCOURT MD Caregiver [address] [place] [phone] ALEJA ROJAS Next Of Kin [address] [place] [address] Insurance Providers Payer Name Policy Number Subscriber Name Relationship Medicare [id number] Ana Marte 18 Self [facility] [id number] Ana Marte 18 Self Advance Directives Directive [...] Disposition 01 DISCHARGED HOME, SELF-CARE Instructions/Education Provided [facility] Congestive Heart Failure Congestive Heart Failure (Alternative [...] F (96.8 - 99.1) Temperature (Calculated Celsius) 35.14265 degrees C (36.0 - 37.3) Temperature Source [...] 24, 2011 10:20pm LAB TEST FORM REQUEST [id number] - Lymphocytes # (Auto) November 24, 2014 [...] 22, 2010 5:00am 0.0 % N 0-0 FA-Cls-M-Type Natriuretic Peptide November 23, 2014 10:30am 4010 [...] Has specimen been collected/obtained? Y Urine Specific [place] November 23, 2014 10:25am >=1.030 H - [...] 2010 1:01pm Name: ANA MARTE Unit #: [id number] : 1935 Sex: F DISCHARGE SUMMARY Admit Date: 11/23/14 Report #: [id number] General Date Date DATE: 11/24/14 TIME: 11:30 [...] she underwent a heart catheterization here at [facility] in the care of Dr. [...] This morning family had her brought to [facility] for evaluation. They state she [...] procedures. Encounters Encounter Location Date/Time Discharged Inpatient 11/23/14 1:15pm Departed [facility] 11/22/14 6:51am Recent Diagnosis Congestive heart failure Hypoxia Hyperlipidemia
[2017-02-22] MEDS ORDERED: LOSA50TA52 PO (09:28)
[2017-02-22] MEDS ORDERED: METO25TA6 PO (09:28)
[2017-02-22] MEDS ORDERED: BENZ-16 PO (09:29)
[2017-02-22] MEDS ORDERED: CEFD300C3 PO (09:29)
--- NOTE | 2017-02-22 09:30 | NUR ---
RESP IMPROVED AFTER DUONEB.
--- NOTE | 2017-02-22 09:35 | NUR ---
ACTIVITY UP TO COMMODE FOR UA. ONLY VOIDED 45 CC CARL URINE
[2017-02-22 09:38] LABS: INFLUENZA A AG SCREEN NEGATIVE (NEGATIVE); INFLUENZA B AG SCREEN POSITIVE (NEGATIVE)
[2017-02-22 09:38] LABS: PROBNP 2680 PG/ML (0-175)
[2017-02-22 09:43] LABS: BLOOD, URINE TRACE-INTACT (NEGATIVE); COLOR,URINE YELLOW (YELLOW); LEUKOCYTE ESTERASE ,URINE NEGATIVE (NEGATIVE); NITRITE,URINE NEGATIVE (NEGATIVE); UROBILINOGEN,URINE 0.2 EU/DL (NORMAL)
[2017-02-22 09:55] LABS: MUCUS,URINE PRESENT
[2017-02-22 09:56] LABS: RBC,URINE 0-1 /HPF (0-3)
[2017-02-22 09:57] LABS: BACTERIA,URINE 2+ (NEGATIVE)
[2017-02-22 09:58] LABS: HYALINE CASTS, URINE 0-1 /LPF
--- NOTE | 2017-02-22 10:16 | ERPDOC ---
Departure Disposition Decision Date: Feb 22, 2017 Disposition Decision Time: 10:20 Disposition: 02 TO [facility] Impression Impression Impression: Primary Impression: Influenza B Severity: Severe Condition: Improved Seen By: Physician only Referrals: FELIX BARRERA DO (Family) Problems/Meds/Labs Reviewed?: Yes Medications reviewed and manag: Yes Follow up care ordered?: Yes (admit) Mental Status: Alert, Oriented Scripts Oseltamivir Phosphate (Tamiflu) 75 Mg Capsule 75 MG PO BID, #6 CAP Prov: ROSA ISELA SORIANO MD 02/24/17 HPI - Dyspnea General Chief Complaint: Dyspnea/Respdistress Stated Complaint: CONGESTION, WHEEZING Time Seen by Provider: 08:40 Source: patient, family (daughter), RN notes reviewed, old records Exam Limitations: no limitations HPI - Dyspnea Initial Comments This patient presents to the ER for dyspnea. She developed dyspnea and an increased cough several days ago. On 02/18/17 she was seen by her PCP, Dr Barrera and placed on Cefdinir. However she has not improved and this morning had an episode of severe dyspnea and came in for evaluation. Her cough is productive of yellow sputum. She states that she has noted some dark stools since starting the Cefdinir but read in the pamphlet that GI bleeding could be a side effect of the medication. Otherwise, she denies associated symptoms. No chest pain, no known fever or muscle aches, she had her flu shot last fall. She was recently here for ten days with RSV pneumonia and severe sepsis from 12/24/16 to 01/02/17. 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 Occurred At: home Onset/Timing: Rapid Duration: other (5 days) Pain/Severity Scale: Now: 0/10 Activities at Onset: none Prior Episodes/Possible Cause: no prior episodes Modifying Factors: IMPROVES WITH: oxygen, rest, WORSE WITH: activity Associated Symptoms: cough, shortness of breath, DENIES: chest pain, diaphoresis, fever/chills, headaches, loss of appetite, malaise, nausea/vomiting , rash, seizure, syncope, weakness Aspirin Treatment Today: contraindicated (on Plavix) Hx of Similar Symptoms: Yes (hx pneumonia) Allergies: Coded Allergies: telithromycin (Verified Allergy, Severe, SWELLING OF FACE, 02/22/17) benazepril (Verified Adverse Reaction, Mild, CAUSES DRY MOUTH, COUGH, ) PATIENT REPORTS Past History Patient Surgical History 1. Cholecystectomy 2. Colonoscopy/EGD 3. AVR, tissue valve 4. Right TKA 5. Bilateral cataract extractions 6. Carotid angiogram 11/22/14 Past Medical History Metabolic: hypercholesterolemia, hypertension ENMT: cataracts Cardiac: CAD, CHF, other (aortic valve replacement, PAD) Respiratory: pneumonia GI: GERD, ulcers Musculoskeletal: osteoarthritis, other (DJD) Integumentary: psoriasis Hematologic: anemia Surgical History General: EGD, colonoscopy, gallbladder Cardiac: cardiac bypass, cardiac cath, carotid endarterectomy, valve replacement Joint: knee (right TKA) Family History Family PMH: FOUND: [place], diabetes, hypertension Vaccines Hx Influenza Vaccination: Yes (10/07/2015) Hx Pneumococcal Vaccination: No (sep 2015) Social History Smoking Status: Former smoker Does patient use chewing tobac: No # of Packs/Tins per Day: 1 # of Years: 10 Second Hand Exposure: No Substance Use Type: does not use Marital Status: Housing: house Record Review Pertinent history updated: Yes Review of Systems Constitutional Constitutional: weight gain (slow, uncertain how much), DENIES: chills, fever Eyes General: DENIES: pain Lids/Accessories: DENIES: erythema Vision: DENIES: blurring ENMT Ears: DENIES: pain Hearing: DENIES: hearing loss Balance: DENIES: vertigo Sinuses: DENIES: congestion, rhinorrhea Mouth/Throat: DENIES: sore throat Teeth: DENIES: pain Cardiovascular Cardiac: dyspnea on exertion, see HPI, DENIES: chest pain Vascular: DENIES: pedal edema, unilateral swelling Pulmonary Respiratory: cough, dyspnea, pneumonia hx, see HPI, sputum, tachypnea GI Upper Abdomen: DENIES: heartburn/indigestion, nausea, vomiting Lower Abdomen: blood in stool (one stool, 2 days ago), see HPI, DENIES: constipation, diarrhea General: DENIES: dysuria, hematuria Female: DENIES: vaginal discharge Musculoskeletal General: DENIES: joint pain, pain Integumentary Skin: rash, DENIES: itching Comments chronic psoriasis Neurological General: DENIES: headache, memory disturbances, seizures, syncope Psychiatric Psychiatric: DENIES: anxiety, depression Endocrine Endocrine: DENIES: heat/cold intolerance Hematologic/Lymphatic Hematologic/Lymphatic: anemia Comments chronic anemia Allergic/Immunological Allergic/Immunoligical: DENIES: hives All other Systems All Other Systems: Reviewed and Negative Physical Exam General General Nourishment: well nourished, well developed, appears stated age, adult General Body Habitus: well groomed Vitals and Pain First Documented Vital Signs Date Time Temp Pulse Resp B/P Pulse Ox O2 Delivery O2 Flow Rate FiO2 02/22/17 08:32 98.3 94 22 175/72 70 Room Air 02/22/17 08:35 2.00 Weight: Kilograms: Height (feet): 5 Height (inches): 5.00 Triage Pain Scale: RN VS reviewed by Provider: Yes Comments tachypneic Normal Exams: Head: Normocephalic w/o trauma Eyes: Pupils are PERRLA w/ EOMI, No scleral icterus, irritation, or foreign bodies noted ENMT: No facial trauma, nasal exudates, pharyngeal erythema, or exudates are noted Dental: No fractured, loose, or missing teeth noted Neck: Full range of motion, without adenopathy, JVD, bruits or thyromegaly Abdomen: Bowel sounds positive, soft, non-tender, non-distended, no hepatosplenomegaly, masses or bruits noted Musculoskeletal: No tenderness, or deformity noted, good range of motion, all extremities Neurologic: Patient is alert, and oriented, cranial nerves, motor/sensory/ cerebellar, exams w/o gross deficits, to observation Psychiatric: Patient exhibits, appropriate attention, emotion and affect Respiratory (brief) Respiratory: FOUND: equal bilaterally, symmetrical, wheezes Comments tachypneic, decreased air flow, few exp wheezes Cardiovascular (brief) Cardiac: FOUND: click (hx valve replacement), regular rate, regular rhythm, NOT FOUND: pedal edema Differential Diagnoses Considering: Acute Respiratory Failure, CHF, Influenza, Pneumonia, Viral Syndrome Progress Results/Orders Orders Procedure Category Date Status Time Bmp - Basic Metabolic LAB 02/22/17 Complete Panel 08:47 Probnp LAB 02/22/17 Complete 08:47 Cbc W/Auto LAB 02/22/17 Complete Diff-Reflex Manual 08:47 Blood Culture ANDREIA 02/22/17 In Process 08:47 Troponin I W LAB 02/22/17 Complete Hemolysis Index 08:47 Influenza A/B Screen LAB 02/22/17 Complete 08:47 EKG EKG 02/22/17 Taken 08:47 Chest 1 View RAD 02/22/17 Resulted 08:47 Iv Lock (Ed Only) EDM 02/22/17 Transmitted 08:47 Oxygen Administration EDM 02/22/17 Transmitted 08:47 Albuterol/Ipratropium PHA 02/22/17 Complete (Duoneb) 09:15 Respiratory Panel, Pcr LAB 02/22/17 Complete 09:10 UA, LAB 02/22/17 Complete Dip&Micro(Complete) & 09:24 Procalcitonin LAB 02/22/17 Complete Lactate - Lactic Acid LAB 02/22/17 Complete Measure Vital Signs [facility] 02/22/17 Complete 10:19 Notify Adm Physician UCHE 02/22/17 Complete In Am 10:19 Oseltamivir (Tamiflu) PHA 02/22/17 Complete 21:00 [address] In Facility: ED ADM 02/22/17 Transmitted 10:23 Lab Results Laboratory Tests Test 02/22/17 09:02 02/22/17 09:08 02/22/17 09:24 Influenza Type A Antigen Negative Influenza Type B Antigen Positive White Blood Count 6.3T/MM3 Red Blood Count 3.95M/MM3 Hemoglobin 10.9GM/DL Hematocrit 35.7% Mean Corpuscular Volume 90.4UM3 Mean Corpuscular Hemoglobin 27.6UUG Mean Corpuscular Hemoglobin Concent 30.5GM/DL RDW Standard Deviation 57.4FL Platelet Count 183T/MM3 Mean Platelet Volume 9.8UM3 Immature Granulocyte % (Auto) 0.6% Neutrophils (%) (Auto) 70.6% Lymphocytes (%) (Auto) 15.8% Monocytes (%) (Auto) 11.2% Eosinophils (%) (Auto) 1.0% Basophils (%) (Auto) 0.8% Absolute Immature Granulocyte (auto 0.04T/MM3 Absolute Neutrophils (auto) 4.4T/MM3 Absolute Lymphocytes (auto) 1.0T/MM3 Absolute Monocytes (auto) 0.7T/MM3 Absolute Eosinophils (auto) 0.1T/MM3 Absolute Basophils (auto) 0.1T/MM3 Turbidity < 20 Sodium Level 141MEQ/L Potassium Level 4.6MEQ/L Chloride Level 99MEQ/L Carbon Dioxide Level 31MEQ/L Anion Gap 11MEQ/L Blood Urea Nitrogen 18.0MG/DL Creatinine 0.7MG/DL Glomerular Filtration Rate Calc 80 BUN/Creatinine Ratio 26RATIO Glucose Level 113MG/DL Calculated Osmolality 274MOSM/KG Calcium Level 8.1MG/DL Icterus Index < 2 Troponin I < 0.012ng/ml YR-Cww-G-Type Natriuretic Peptide 2680PG/ML Chemistry Specimen Hemolysis < 15 Urine Collection Type Urine Color Yellow Urine Turbidity Clear Urine pH 5.5 Urine Specific [place] >=1.030 Urine Protein 2+ Urine Glucose (UA) Negative Urine Ketones Negative Urine Blood Trace-intact Urine Nitrite Negative Urine Bilirubin Negative Urine Urobilinogen 0.2EU/DL Urine Leukocyte Esterase Negative Urine RBC 0-1/HPF Urine WBC 1-3/HPF Urine Squamous Epithelial Cells 5-10 Urine Bacteria 2+ Urine Hyaline Casts 0-1/LPF Urine Mucus Present Urine Culture Indicated Cult not indicated Adenovirus (PCR) Negative Bordetella parapertussis DNA (PCR) Negative Chlamydia pneumoniae DNA (PCR) Negative Coronavirus Type OC43 (PCR) Negative Coronavirus Type HKU1 (PCR) Negative Coronavirus Type 229E (PCR) Negative Coronavirus Type NL63 (PCR) Negative Human Metapneumovirus (PCR) Negative Influenza Virus Type A (PCR) Negative Influenza Virus Type B (PCR) Detected Mycoplasma pneumoniae (PCR) Negative Parainfluenza Type 1 (PCR) Negative Parainfluenza Type 2 (PCR) Negative Parainfluenza Type 3 (PCR) Negative Parainfluenza Type 4 (PCR) Negative Respiratory Syncytial Virus (PCR) Negative Enterovirus/Rhinovirus (PCR) Negative Medications Current ED Medications Albuterol/ Ipratropium (Duoneb) 3 ml O ONCE AEROSOL Last administered on t 09:04; Start 02/22/17 at 09:15; Stop 02/22/17 at 09:16; Status DC Progress Progress Initial O2 sats noted to be in the 70s on room air. O2 started and Duoneb given with improvement in symptoms and slowing of respiratory rate. Labs came back positive for influenza B. Hospitalist accepts admission. EKG EKG : Rate: 60-100 Rhythm: junctional [place]: normal QRS: normal Intervals: normal ST/T: non-specific changes Other: PVC, other (occ premature supraventricular complexes) Interpreted by: signing physician EKG Comments no change since 11/10/15 Consult/PCP Consult/PCP : Type of discussion: Admit Discussion/PCP Discussion Details [address] Dr Rivera. Discussed presentation, labs and imaging. Start on Tamiflu and admit. Xray Xray : Xray: CXR Portable Interpretation: Abnormal (mild pulmonary vascular prominence), Reviewed Written Report LINSEY DOHERTY MD Feb 22, 2017 10:16
[2017-02-22] MEDS: OSELTAMIVIR 75 MG CAPSULE PO SCH (10:35)
--- OUTSIDE RECORDS SUMMARY | 2017-02-22 10:47 | XMS REPORT | Continuity of Care Document ---
Author Author [facility] Organization [facility] Address Unknown Phone Unavailable Support Name Relationship Address Phone BELEM ZAFAR DO Caregiver [address] [place] [address] FELIX BARRERA DO Caregiver [address] [facility] [address] [place] [address] SAI RYAN MD Caregiver [address] [place] [phone] PRESTON BETANCOURT MD Caregiver [address] [place] [phone] ALEJA ROJAS Next Of Kin [address] [place] [id number] Insurance Providers Payer Name Policy Number Subscriber Name Relationship Medicare [id number] Ana Marte 16 Self [facility] [id number] Ana Marte 16 Self Advance Directives Directive [...] Disposition 01 DISCHARGED HOME, SELF-CARE Instructions/Education Provided [facility] Congestive Heart Failure Congestive Heart Failure (Alternative [...] F (96.8 - 99.1) Temperature (Calculated Celsius) 35.34734 degrees C (36.0 - 37.3) Temperature Source [...] 24, 2011 10:20pm LAB TEST FORM REQUEST [id number] - Lymphocytes # (Auto) November 24, 2014 [...] 22, 2010 5:00am 0.0 % N 0-0 ZV-Ddn-Z-Type Natriuretic Peptide November 23, 2014 10:30am 4010 [...] Has specimen been collected/obtained? Y Urine Specific [place] November 23, 2014 10:25am >=1.030 H - [...] 2010 1:01pm Name: ANA MARTE Unit #: [id number] : 1935 Sex: F DISCHARGE SUMMARY Admit Date: 11/23/14 Report #: [id number] General Date Date DATE: 11/24/14 TIME: 11:30 [...] she underwent a heart catheterization here at [facility] in the care of Dr. Ryan. [...] This morning family had her brought to [facility] for evaluation. They state she looks [...] procedures. Encounters Encounter Location Date/Time Discharged Inpatient [facility] 11/23/14 1:15pm Departed [facility] 11/22/14 6:51am Recent Diagnosis Congestive heart failure Hypoxia Hyperlipidemia
--- OUTSIDE RECORDS SUMMARY | 2017-02-22 10:47 | XMS REPORT | Continuity of Care Document ---
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 Visit Date/Time Discharge Status Pt. Type Provider Facility Loc./Unit Complaint [id number] 11/03/2014 13:07:00 2013 13:07:00 DIS Outpatient Connor ERNST, Topher Bertrand [facility] W.RAC [id number] 01/22/2013 18:03:00 2012 14:44:00 DIS Inpatient Preeti ERNST, Daquan Centeno [facility] W.3CE [id number] 01/21/2013 07:37:00 2012 09:34:00 DIS Emergency Jesús ERNST, Jose Elias Fritz [facility] W.EDS [id number] 04/01/2011 11:45:00 Inpatient [id number] 12/31/2010 21:25:00 Inpatient
--- NOTE | 2017-02-22 10:57 | NUR ---
REPORT TO JANINE ALEJANDRA
--- NOTE | 2017-02-22 11:05 | NUR ---
TRANSPORT PER WC ON O2 TO RM 146. TOLERATED ACTIVITY WELL.
--- NOTE | 2017-02-22 11:05 | NUR ---
ADMISSION TO MEDICAL VSS. 2L NC. DENIES SOA AND PAIN. FAMILY PRESENT. PATIENT VERY PLEASANT AND COOPERATIVE.
[2017-02-22] MEDS ORDERED: BENZONATATE 100 MG CAPSULE PO PRN (12:15)
[2017-02-22] MEDS ORDERED: FUROSEMIDE 20 MG/2 ML INJECTION IV ONE (12:15)
[2017-02-22] MEDS ORDERED: ONDANSETRON 4mg/2ml INJECTION IV PRN (12:15)
[2017-02-22] MEDS ORDERED: NORMAL SALINE 1,000 ML IV SCH (12:15)
[2017-02-22] MEDS ORDERED: ALBUTEROL/IPRATROPIUM INHAL. 2.5mg-0.5mg/3ml Neb. AEROSOL PRN (12:15)
[2017-02-22] MEDS ORDERED: ACETAMINOPHEN 500 MG TABLET PO PRN (12:15)
--- NOTE | 2017-02-22 12:41 | HPPDOC ---
PEPPER SULTANA 02/22/17 1142: HPI - Adult Date DATE: 02/22/17 TIME: 11:37 General Chief Complaint: respiratory failure with hypoxia, influenza B History of Present Illness Ana Marte is a very pleasant 82-year-old female who presented to [facility] [place] emergency department today, 02/22/17, for evaluation of dyspnea and progressive productive cough. Her daughter is present on the exam and contributes to the history. She reports that on 02/17/17 both she and her daughter started to have a cough. They were both seen by her PCP, Dr. Barrera, on 02/18 and both started on cefdinir for coverage of pulmonary antimicrobials. She states that despite the antibiotic, her cough continued to worsen with yellow sputum and she became more short of breath. She denies any known fevers or chills. No chest pain, abdominal pain, nausea, vomiting or dysuria. This morning she became extremely short of breath and was brought to [facility] [place] emergency room for further evaluation. Upon arrival, she was noted to be hypertensive with blood pressure 175/72, tachypneic with respiratory rate 32, tachycardic with heart rate 92 and hypoxic at 70% on room air. No documented temperature from arrival. She was immediately placed on 2L oxygen and given a DuoNeb breathing treatment which improved her saturations to 99%. Labs were obtained and were relatively unremarkable - WBC 6.3, hgb 10.9 (history of chronic anemia), Plt 183, Na+ 141, K+ 4.6, BUN 18, SCr 0.7 and Gl 113. BNP was elevated at 2630 and she admits to some recent weight gain despite decreased in her appetite. She states she weighs herself regularly but can not clarify how much weight gain. Troponin was negative at <0.012. Respiratory panel was positive for Influenza B. Chest x -ray showed increased pulmonary congestion without focal infiltrate noted and was reviewed by myself and Dr. Rivera. Due to her respiratory failure with hypoxia secondary to influenza B, severe sepsis and increased risk for deterioration due to her age and cardiac history, Dr. Rivera was contacted and she was admitted into inpatient status for further evaluation and close respiratory monitoring with respiratory support. Her length of stay is expected to exceed more than 2 over nights. Discussed patient code wishes on exam and patient requests to be DNR at this time. She is seem immediately upon her arrival to her room, #[id number], with her daughter and nurse at the bedside. She is alert and orientated x3 with a very pleasant disposition. She is noted to have increased respiratory effort with accessory muscle use despite 2L NC present. Cardiac exam reveals tachycardia with click consistent with history of aortic valve replacement. Lungs are diminished in right lower lobe with wheezing and bibasilar rales posteriorly and wheezing and rhonchi noted on anterior auscultation. Active wet, productive cough on exam. Abdomen is soft, nontender with active bowel sounds. 1+ pedal pulses bilaterally with no edema noted to lower extremities. Past Medical History Past Medical History 1. Hypertension 2. Hyperlipidemia 3. Psoriasis 4. Epigastric ulcer disease 5. Gastroparesis reflux disease 6. Anemia, chronic 7. Peripheral artery disease 8. Degenerative joint disease 9. 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 Osteoarthritis 6. Chronic anemia 7. Renal stent, indication unclear Surgical History Patient's Surgical History: 1. Cholecystectomy 2. Colonoscopy/EGD 3. AVR, tissue valve 4. Right TKA 5. Bilateral cataract extractions 6. Carotid angiogram 11/22/14 Current Medications Home Meds Reported Medications Benzonatate (Benzonatate) 100 Mg Capsule, 100 MG PO TID Y for COUGH 02/22/17 Cefdinir (Cefdinir) 300 Mg Capsule, 300 MG PO TID 02/22/17 Metoprolol Tartrate (Metoprolol Tartrate) 25 Mg Tablet, 25 MG PO BIDWM 02/22/17 Losartan Potassium (Losartan Potassium) 50 Mg Tablet, 50 MG PO DAILY 02/22/17 Guaifenesin (Mucinex) 1,200 Mg Tbbp.12hr, 1200 MG PO DAILY 02/22/17 Albuterol Sulfate (Ventolin HFA 90 mcg/actuation) 18 Gm Hfa.aer.ad, 2 PUFF ORAL INH Q4H Y for SHORTNESS OF AIR/WHEEZING 02/22/17 Atorvastatin Calcium (Atorvastatin Calcium) 40 Mg Tablet, 40 MG PO HS 12/21/16 Furosemide (Furosemide) 20 Mg Tablet, 20 MG PO BID 10/09/15 Clopidogrel Bisulfate (Plavix) 75 Mg Tablet, 75 MG PO DAILY 07/08/15 Amlodipine Besylate (Amlodipine Besylate) 5 Mg Tablet, 5 MG PO DAILY 07/08/15 Omeprazole (Prilosec) 40 Mg Capsule.dr, 40 MG PO DAILY 07/08/15 Potassium Chloride (Potassium Chloride) 20 Meq Tab.prt.sr, 20 MEQ PO BID 07/04/10 Allergies: Coded Allergies: telithromycin (Verified Allergy, Severe, SWELLING OF FACE, 02/22/17) benazepril (Verified Adverse Reaction, Mild, CAUSES DRY MOUTH, COUGH, ) PATIENT REPORTS Family History Family History: 2 sisters had strokes, additionally diabetes, hypertension, cardiac disease reported in the family Social History Smoking Status: Former smoker Does patient use chewing tobac: No # of Packs/Tins per Day: 1 # of Years: 10 Second Hand Exposure: No Quit Date: Nov 23, 2002 Substance Use Type: does not use Alcohol Intake: none Marital Status: Housing: house Household Members: other (lives alone) Current Occupational Status: retired Advance Directives: Yes DNR, No DPOA for Healthcare Only Social History Comments PCP - Dr. Barrera. Review of Systems Constitutional: REPORTS: appetite decrease, weakness (generalized), DENIES: chills, dizziness, fatigue, fever, syncope Eyes General: DENIES: photophobia Vision: DENIES: double vision ENMT Hearing: DENIES: hearing loss Sinuses: FOUND: congestion Nose: NOT FOUND: nosebleeds Mouth/Throat: DENIES: change in swallowing, sore throat Cardiovascular dyspnea on exertion, DENIES: chest pain Rhythm/Rate: tachycardia, DENIES: irregular beat, palpitations Vascular: DENIES: pallor of an extremity, pedal edema, unilateral swelling Pulmonary Respiratory: cough, dyspnea, pneumonia hx (12/2016), sputum, tachypnea, DENIES: pleuritic chest pain GI Upper Abdomen: DENIES: dysphagia, heartburn/indigestion, nausea, pain, vomiting Lower Abdomen: blood in stool (x1 stool 2 days ago- relates to cefdinir), DENIES: constipation, diarrhea, pain General: renal stones, DENIES: burning, dysuria, frequency, pain, urgency Musculoskeletal General: weakness (generalized), DENIES: pain Integumentary Skin: DENIES: rash Neurological General: weakness (generalized), DENIES: headache, numbness, seizures, syncope , vertigo Psychiatric Psychiatric: DENIES: emotional instability, nervousness Hematologic/Lymphatic anemia All Other Systems All Other Systems: Reviewed (remainder of 10-point ROS Neg.) Physical Exam General General Nourishment: well nourished, well developed, adult General Body Habitus: well groomed Vital Signs Vital Signs Date Time Temp Pulse Resp B/P Pulse Ox O2 Delivery O2 Flow Rate FiO2 02/22/17 11:17 89 18 02/22/17 11:09 97.6 154/58 94 Nasal Cannula 2.00 Height (Feet): 5 Height (Inches): 7.00 Eyes Brief: FOUND: PERRL, NOT FOUND: scleral icterus ENMT Brief: FOUND: mucosa moist, normal dentition Neck Brief: FOUND: midline, NOT FOUND: nuchal rigidity, tracheal deviation Respiratory Inspection: FOUND: accessory muscle use, increased effort, tachypnea Palpation: NOT FOUND: tenderness Auscultation: FOUND: decreased, rales, rhonchi, wheezes Breasts: FOUND: symmetric Cardiovascular Auscultation: FOUND: S1, S2, regular Murmur: FOUND: other (click) Peripheral Pulses: 1+: Dorasalis Pedis (L), Dorsalis Pedis (R), 2+: Radial (L) , Radial (R) Edema: 0: Anasarca, Arm (L), Arm (R), Face, Leg (L), Leg (R) Abdomen Inspection: NOT FOUND: distention Palpation: FOUND: soft, NOT FOUND: involuntary guarding, rebound, tender, voluntary guarding Auscultation: FOUND: normo active Lymphatic (brief) Lymphatic Brief: NOT FOUND: lymphedema Musculoskeletal (brief) Musculoskeletal Brief: FOUND: extremities move equally, NOT FOUND: deformity, loss of motion Integumentary (brief) Integumentary Brief: FOUND: dry, pink, warm Comments afebrile Neurologic Mental Status: FOUND: alert, oriented RN Documented GCS Eye Opening: Verbal: Motor: Total: Cranial Nerves: FOUND: forehead movement, shoulder shrug, NOT FOUND: facial asymmetry Unusual Movements: NOT FOUND: tremor Sensation: FOUND: cold, soft touch Other Reflexes: FOUND: great toe movement Psychiatric (brief) FOUND: alert, attentive, normal affect, oriented Psychiatric Psychiatric General: FOUND: mood (pleasant) Attitude: FOUND: cooperative Laboratory Laboratory Tests Test 02/22/17 09:02 02/22/17 09:08 02/22/17 09:24 02/22/17 10:38 Influenza Type A Antigen Negative Influenza Type B Antigen Positive White Blood Count 6.3T/MM3 Red Blood Count 3.95M/MM3 Hemoglobin 10.9GM/DL Hematocrit 35.7% Mean Corpuscular Volume 90.4UM3 Mean Corpuscular Hemoglobin 27.6UUG Mean Corpuscular Hemoglobin Concent 30.5GM/DL RDW Standard Deviation 57.4FL Platelet Count 183T/MM3 Mean Platelet Volume 9.8UM3 Immature Granulocyte % (Auto) 0.6% Neutrophils (%) (Auto) 70.6% Lymphocytes (%) (Auto) 15.8% Monocytes (%) (Auto) 11.2% Eosinophils (%) (Auto) 1.0% Basophils (%) (Auto) 0.8% Absolute Immature Granulocyte (auto 0.04T/MM3 Absolute Neutrophils (auto) 4.4T/MM3 Absolute Lymphocytes (auto) 1.0T/MM3 Absolute Monocytes (auto) 0.7T/MM3 Absolute Eosinophils (auto) 0.1T/MM3 Absolute Basophils (auto) 0.1T/MM3 Turbidity < 20 Sodium Level 141MEQ/L Potassium Level 4.6MEQ/L Chloride Level 99MEQ/L Carbon Dioxide Level 31MEQ/L Anion Gap 11MEQ/L Blood Urea Nitrogen 18.0MG/DL Creatinine 0.7MG/DL Glomerular Filtration Rate Calc 80 BUN/Creatinine Ratio 26RATIO Glucose Level 113MG/DL Calculated Osmolality 274MOSM/KG Calcium Level 8.1MG/DL Icterus Index < 2 Troponin I < 0.012ng/ml CF-Uxj-L-Type Natriuretic Peptide 2680PG/ML Chemistry Specimen Hemolysis < 15 Urine Collection Type Urine Color Yellow Urine Turbidity Clear Urine pH 5.5 Urine Specific [place] >=1.030 Urine Protein 2+ Urine Glucose (UA) Negative Urine Ketones Negative Urine Blood Trace-intact Urine Nitrite Negative Urine Bilirubin Negative Urine Urobilinogen 0.2EU/DL Urine Leukocyte Esterase Negative Urine RBC 0-1/HPF Urine WBC 1-3/HPF Urine Squamous Epithelial Cells 5-10 Urine Bacteria 2+ Urine Hyaline Casts 0-1/LPF Urine Mucus Present Urine Culture Indicated Cult not indicated Adenovirus (PCR) Negative Bordetella parapertussis DNA (PCR) Negative Chlamydia pneumoniae DNA (PCR) Negative Coronavirus Type OC43 (PCR) Negative Coronavirus Type HKU1 (PCR) Negative Coronavirus Type 229E (PCR) Negative Coronavirus Type NL63 (PCR) Negative Human Metapneumovirus (PCR) Negative Influenza Virus Type A (PCR) Negative Influenza Virus Type B (PCR) Detected Mycoplasma pneumoniae (PCR) Negative Parainfluenza Type 1 (PCR) Negative Parainfluenza Type 2 (PCR) Negative Parainfluenza Type 3 (PCR) Negative Parainfluenza Type 4 (PCR) Negative Respiratory Syncytial Virus (PCR) Negative Enterovirus/Rhinovirus (PCR) Negative Plasma Lactate 0.8MMOL/L Procalcitonin < 0.05NG/ML Sepsis Diagnostic Criteria Sepsis Confirmed/Suspected Infection: Yes SIRS Criteria: Pulse >= 90 beats/min, RR > or = to 20 Severe Sepsis SpO2 <90% or ventilated Assessment & Plan Problems: (1) Severe sepsis Status: Acute Assessment & Plan: present on admission secondary to influenza B as indicated by: * Tachycardia - HR 92. * Tachypnea - RR 32. * Hypoxia - SAO2 701% RA. (2) Acute respiratory failure with hypoxia Status: Acute Assessment & Plan: present on admission. (3) Influenza B Status: Acute (4) Hypertension Status: Chronic (5) Hyperlipidemia Status: Chronic Qualifiers: Hyperlipidemia type: unspecified Qualified Codes: E78.5 - Hyperlipidemia, unspecified (6) Anemia Status: Chronic Qualifiers: Anemia type: unspecified type Qualified Codes: D64.9 - Anemia, unspecified (7) Coronary arteriosclerosis after coronary artery bypass grafting Status: Chronic (8) S/P AVR Status: Chronic (9) Osteoarthritis Status: Chronic Qualifiers: Osteoarthritis location: multiple joints Osteoarthritis type: primary Qualified Codes: M15.0 - Primary generalized (osteo)arthritis (10) GERD (gastroesophageal reflux disease) Status: Chronic (11) Psoriasis Status: Chronic Assessment Ana Marte is a very pleasant 82-year-old female who presented to [facility] [place] emergency department today, 02/22/17, for evaluation of dyspnea and progressive productive cough. Her daughter is present on the exam and contributes to the history. She reports that on 02/17/17 both she and her daughter started to have a cough and were both started on cefdinir on 02/18. Despite the antibiotic, her cough continued to worsen with yellow sputum and she became more short of breath. This morning she became extremely short of breath and was brought to [facility] [place] emergency room for further evaluation. On arrival blood pressure 175/72, respiratory rate 32, heart rate 92 and hypoxic at 70% on room air. She was immediately placed on 2L oxygen and given a DuoNeb breathing treatment which improved her saturations to 99%. Labs were obtained and were relatively unremarkable. BNP was elevated at 2630. Respiratory panel was positive for Influenza B. Chest x-ray showed increased pulmonary congestion without focal infiltrate noted and was reviewed by myself and Dr. Rivera. Due to her respiratory failure with hypoxia secondary to influenza B, severe sepsis and increased risk for deterioration due to her age and cardiac history, Dr. Rivera was contacted and she was admitted into inpatient status. She is alert and orientated x3 with a very pleasant disposition. Increased respiratory effort with accessory muscle use despite 2L NC present. Cardiac exam reveals tachycardia with click consistent with history of aortic valve replacement. Lungs are diminished in right lower lobe with wheezing and bibasilar rales posteriorly and wheezing and rhonchi noted on anterior auscultation. Active wet , productive cough on exam. Abdomen is soft, nontender with active bowel sounds. 1+ pedal pulses bilaterally with no edema noted to lower extremities. DNR. Plan/Intensity of Service 02/22/17: ADMIT. Sydnee/Miguel. - Severe Sepsis with respiratory failure and acute hypoxia secondary to Influenza B: * Present on admission 02/22/17 secondary to Influenza B as indicated by: * Tachycardia (HR 92). * Tachypnea (RR 32). * Hypoxia (SAO2 70% RA) * Admit to inpatient status under the care of Dr. Rivera and hospitalist service. * Initiate NS 60cc/hr for gentle hydration as CXR shows signs of pulmonary congestion without focal infiltrate. * Continuous oxygen to maintain SAO2 > 92%. Wean as able. Patient does not use home O2. Monitor closely on telemetry in light of cardiac history and risk of deterioration. * Continue respiratory support with DuoNeb treatments. Try and obtain sputum culture for further evaluation. * Initiate Tamiflu for treatment of influenza B.Antibiotics are not indicated at this time as no signs of bacterial infection and patient was recently on cefdinir x 4 days without improvement. * Repeat CXR in AM and repeat lactate at 1530. * SCDs for DVT prophylaxis. * Tessalon pearls for cough suppression and Mucinex for mucolytic effect. * Will recheck CBC and BMP in AM to monitor blood counts, electrolytes and renal function. - Hypertension, chronic: * Continue home medications - amlodipine,losartan and metoprolol. * Continue home daily Lasix 20mg BID with KCl supplementation. In light of report of recent weight gain and signs of congestion on CXR, will give additional Lasix 20mg IV now. Monitor daily weights and I&O closely for signs of fluid overload. Discontinue IV fluids once oral intake improves. * Continue home Plavix in light of CAD. - Hyperlipidemia, chronic: * Continue home Lipitor. - Anemia, chronic: * Present on admission-hgb 10.9. Monitor closely throughout admission. Patient reports blood in stool x 1, 2-3 days ago. Will obtain Hemoccult and monitor both stools and hemoglobin closely. - GERD: * Continue home Prilosec for GERD and GI protection. * Cardiac diet. Discussed code status with patient and family and she requests DNR STATUS at this time. Upon discharge, patient's care will be returned to her PCP, Dr. Barrera. DVT Prophylaxis: SCD'S Code Status Do Not Resuscitate Hospital Course Summary Disclaimer The hospital course summary below is not to be considered part of the above Progress Note. Hospital Course Summary 02/22/17: ADMIT. Sydnee/Miguel. - Severe Sepsis with respiratory failure and acute hypoxia secondary to Influenza B: * Present on admission 02/22/17 secondary to Influenza B as indicated by: * Tachycardia (HR 92). * Tachypnea (RR 32). * Hypoxia (SAO2 70% RA) * Admit to inpatient status under the care of Dr. Rivera and hospitalist service. * Initiate NS 60cc/hr for gentle hydration as CXR shows signs of pulmonary congestion without focal infiltrate. * Continuous oxygen to maintain SAO2 > 92%. Wean as able. Patient does not use home O2. Monitor closely on telemetry in light of cardiac history and risk of deterioration. * Continue respiratory support with DuoNeb treatments. Try and obtain sputum culture for further evaluation. * Initiate Tamiflu for treatment of influenza B.Antibiotics are not indicated at this time as no signs of bacterial infection and patient was recently on cefdinir x 4 days without improvement. * Repeat CXR in AM and repeat lactate at 1530. * SCDs for DVT prophylaxis. * Tessalon pearls for cough suppression and Mucinex for mucolytic effect. * Will recheck CBC and BMP in AM to monitor blood counts, electrolytes and renal function. - Hypertension, chronic: * Continue home medications - amlodipine,losartan and metoprolol. * Continue home daily Lasix 20mg BID with KCl supplementation. In light of report of recent weight gain and signs of congestion on CXR, will give additional Lasix 20mg IV now. Monitor daily weights and I&O closely for signs of fluid overload. Discontinue IV fluids once oral intake improves. * Continue home Plavix in light of CAD. - Hyperlipidemia, chronic: * Continue home Lipitor. - Anemia, chronic: * Present on admission-hgb 10.9. Monitor closely throughout admission. Patient reports blood in stool x 1, 2-3 days ago. Will obtain Hemoccult and monitor both stools and hemoglobin closely. - GERD: * Continue home Prilosec for GERD and GI protection. * Cardiac diet. Discussed code status with patient and family and she requests DNR STATUS at this time. Upon discharge, patient's care will be returned to her PCP, Dr. Barrera. SANDEEP RIVERA MD 02/22/17 4422: Past Medical History Current Medications Home Meds Reported Medications Benzonatate (Benzonatate) 100 Mg Capsule, 100 MG PO TID Y for COUGH 02/22/17 Cefdinir (Cefdinir) 300 Mg Capsule, 300 MG PO TID 02/22/17 Metoprolol Tartrate (Metoprolol Tartrate) 25 Mg Tablet, 25 MG PO BIDWM 02/22/17 Losartan Potassium (Losartan Potassium) 50 Mg Tablet, 50 MG PO DAILY 02/22/17 Guaifenesin (Mucinex) 1,200 Mg Tbbp.12hr, 1200 MG PO DAILY 02/22/17 Albuterol Sulfate (Ventolin HFA 90 mcg/actuation) 18 Gm Hfa.aer.ad, 2 PUFF ORAL INH Q4H Y for SHORTNESS OF AIR/WHEEZING 02/22/17 Atorvastatin Calcium (Atorvastatin Calcium) 40 Mg Tablet, 40 MG PO HS 12/21/16 Furosemide (Furosemide) 20 Mg Tablet, 20 MG PO BID 10/09/15 Clopidogrel Bisulfate (Plavix) 75 Mg Tablet, 75 MG PO DAILY 07/08/15 Amlodipine Besylate (Amlodipine Besylate) 5 Mg Tablet, 5 MG PO DAILY 07/08/15 Omeprazole (Prilosec) 40 Mg Capsule.dr, 40 MG PO DAILY 07/08/15 Potassium Chloride (Potassium Chloride) 20 Meq Tab.prt.sr, 20 MEQ PO BID 07/04/10 Allergies: Coded Allergies: telithromycin (Verified Allergy, Severe, SWELLING OF FACE, 02/22/17) benazepril (Verified Adverse Reaction, Mild, CAUSES DRY MOUTH, COUGH, ) PATIENT REPORTS Assessment & Plan Assessment 02/22/2017-Dr. Rivera-I reviewed this chart, the patient history, and the CLIENT DEVELOPMENT DIRECTOR's /PA's documented findings as above. We discussed and formulated the assessment and plan as above with the additions below. I came to see the patient this evening in her room. Her son-in-law was present. Patient states that she feels much better this evening then she did earlier today. She states her shortness of breath is much better. She also states that her appetite has improved. She had nausea earlier but that is gone now. She had no vomiting. She states her cough started last week and she was started on antibiotics but did not improve. She denies history of asthma or COPD but does have an inhaler that was prescribed to her when she was discharged from the hospital on her last day. She did start having some bright red blood per rectum yesterday. The nurses noted a couple of bloody appearing stools today with a fair amount of blood mixed in with the stool. The patient has never had rectal bleeding before. She is chronically on Plavix for coronary artery disease and peripheral vascular disease. She has had a CABG, porcine aortic valve replacement, carotid endarterectomies and stents in her renal arteries. Renal artery stents were several years ago. She denies any other stents and specifically denies cardiac stents. She has history of gastric ulcer but no bleeding. She has not vomited. She has not noticed any black stools. She had some abdominal discomfort earlier but that has resolved. She has no history of cancer. There is no family history of GI cancers. She had a colonoscopy several years ago and states that it was normal. GEN-alert, oriented, no acute distress HEENT-sclera anicteric, oropharynx is moist NECK-supple, carotids revealed mild bruits bilaterally CV-regular rate and rhythm with 2/6 systolic murmur CHEST-course rhonchi bilaterally, no wheezing ABD-soft, nontender, nondistended with positive bowel sounds -no Edmondson EXT-no edema NEURO-no focal deficits SKIN-warm and dry and without rashes Impression Influenza B Acute hypoxic respiratory failure Severe sepsis Rectal bleeding Chronic Plavix use for coronary artery disease and peripheral vascular disease, no recent stents, no history of stroke or TIA Rectal bleeding Anemia chronic with possible acute blood loss anemia hemoglobin today is 10.9 and last hemoglobin in December of this year was 10.1- Porcine aortic valve Coronary artery disease with history of CABG Peripheral vascular disease with renal artery stents and carotid endarterectomy bilaterally Possible congestive heart failure with chronic Lasix use Hypertension Plan I agree with current care plan above. In addition, will type and cross 2 units of blood and have on hold. Will obtain hemoglobin every 8 hours. We'll check an INR and PTT. Will hold Plavix for now. The patient is very worried about holding the Plavix because she stated that her sister was off Plavix for 3 days for dental work and unfortunately suffered a stroke. The patient states she would rather than have a stroke herself. We discussed watching day by day how her blood count is doing and whether bleeding continues and deciding on a daily basis whether or not to restart Plavix. She is okay with this plan for now. Will check GI panel regarding rectal bleeding. May need to consider colonoscopy/surgery consult if bleeding continues. PEPPER SULTANA Feb 22, 2017 11:42 SANDEEP RIVERA MD Feb 22, 2017 18:35
[2017-02-22] MEDS: AMLODIPINE 5 MG TABLET PO SCH (13:25)
[2017-02-22] MEDS: GUAIFENESIN LA 600 MG TABLET PO SCH (13:26)
[2017-02-22] MEDS: LOSARTAN 50 MG TABLET PO SCH (13:26)
--- NOTE | 2017-02-22 13:35 | DI ---
Indication: ITS.REASON: cough, low sats PROCEDURE: CHEST 1 VIEW: Encounter: Initial Comparison: January 01, 2017 Findings: Improving aeration of the left lower lobe with better visualization of the left hemidiaphragm. No acute consolidative pneumonia. No definite pleural effusion or pneumothorax. Prior CABG. Heart size is stable. Mediastinal contours are unchanged with some prominence of the central pulmonary vasculature. Impression: Mild pulmonary vascular prominence could relate to vascular congestion or pulmonary artery hypertension. No focal pneumonia. .
[2017-02-22] MEDS: ALBUTEROL/IPRATROPIUM INHAL. 2.5mg-0.5mg/3ml Neb. AEROSOL SCH ×2 (14:35→19:31)
[2017-02-22] MEDS: POTASSIUM CHLORIDE 20 MEQ TABLET PO SCH (17:17)
[2017-02-22] MEDS: FUROSEMIDE 20 MG TABLET PO SCH (17:17)
--- NOTE | 2017-02-22 18:20 | NUR ---
SHIFT SUMMARY VSS. 1L NC, UNABLE TO WEAN AT THIS TIME. PATIENT DENIES SOA. GOOD URINE OUTPUT FOLLOWING LASIX. PERIPHERAL IV SALINE LOCKED. UP TO CHAIR FOR SUPPER. PATIENT HAS MULTIPLE BLOODY STOOLS SINCE ADMISSION. BLOOD IS BRIGHT MAROON IN COLOR. BED AND CHAIR ALARMS IN USE. ON PRECAUTIONS DUE TO INFLUENZA B. PLAVIX IS ON HOLD DUE TO GI BLEEDING.
[2017-02-22] MEDS ORDERED: NORMAL SALINE 500 ML IV SCH (18:40)
--- NOTE | 2017-02-22 18:49 | NUR ---
OXYGEN PATIENT AMBULATED TO BATHROOM AND BACK TO CHAIR ON 1L NC. O2 SATURATION DROPPED TO 84%. PATIENT TURNED TO 2L NC.
--- NOTE | 2017-02-22 19:24 | NUR ---
STOOL SAMPLE UNABLE TO OBTAIN STOOL SAMPLE FROM THIS BM DUE TO BM BEING COMPLETELY IMMERSED IN URINE.
[2017-02-22 19:27] LABS: HGB - HEMOGLOBIN 10.5 GM/DL (12-16)
[2017-02-22 19:46] LABS: INR 1.1 (0.76-1.04); PTT 28.4 SEC (24-36)
[2017-02-22] MEDS: ATORVASTATIN 40 MG TABLET PO SCH (20:21)
[2017-02-23] VITALS (12 sets, daily range): BP systolic 109–125; BP diastolic 49–51; PULSE 83–95; RESP 18–24; TEMP 96–96.7; O2SAT 91–99
[2017-02-23 02:58] LABS: BASOPHILS # (AUTO) 0.1 T/MM3 (0-0.2); EOSINOPHILS # (AUTO) 0.2 T/MM3 (0-0.5); EOSINOPHILS % (AUTO) 3.2 % (0-4); HCT - HEMATOCRIT 33.9 % (36-46); HGB - HEMOGLOBIN 10.3 GM/DL (12-16); IMMATURE GRANULOCYTE # (AUTO) 0.02 T/MM3 (0.00-0.03); IMMATURE GRANULOCYTE % (AUTO) 0.4 % (0.0-0.5); LYMPHOCYTES # (AUTO) 1.1 T/MM3 (1-4.8); LYMPHOCYTES % (AUTO) 22.4 % (23-45); MEAN CORPUSCULAR HGB 27.5 UUG (26-34); MEAN CORPUSCULAR HGB CONC(MCHC 30.4 GM/DL (31-37); MEAN CORPUSCULAR VOLUME 90.4 UM3 (80-100); MEAN PLATELET VOLUME 9.8 UM3 (9.4-12.4); MONOCYTES # (AUTO) 0.7 T/MM3 (0-0.8); MONOCYTES % (AUTO) 14.3 % (0-9.0); NEUTROPHILS #(AUTO)-ABSOLUTE 2.9 T/MM3 (1.8-7.7); NEUTROPHILS % (AUTO) 58.7 % (33-66); RED BLOOD COUNT 3.75 M/MM3 (4.00-5.20)
--- NOTE | 2017-02-23 03:02 | NUR ---
02 DROP: TELEMETRY CALLED NOTIFYING ME OF PT'S 02 DROP INTO THE UPPER 80'S. I ASSESSED PT'S 02 SATURATION, 88%. INCREASED PT'S OXYGEN FROM 2L NC TO 3L NC AND RAISED THE HEAD OF PT'S BED. PT'S OXYGEN SATURATION INCREASED TO 97%. WILL CONTINUE TO MONITOR.
[2017-02-23 03:09] LABS: ANION GAP 8 MEQ/L (5-15); BUN/CREATININE RATIO 24 RATIO (6-26); CALCIUM 8.3 MG/DL (8.4-10.2); CHLORIDE 103 MEQ/L (98-107); CO2 - CARBON DIOXIDE 32 MEQ/L (22-30); CREATININE 0.7 MG/DL (0.7-1.2); GLOMERULAR FILTRATION RATE 80; GLUCOSE 100 MG/DL (65-110); POTASSIUM 3.9 MEQ/L (3.6-5); SODIUM 143 MEQ/L (134-144)
--- NOTE | 2017-02-23 03:20 | NUR ---
CALLED RT: AFTER ASSISTING PT TO THE BATHROOM AND BACK TO BED, I LISTENED TO HER LUNGS AND NOTED SIGNIFICANT INCREASE IN CONGESTION COMPARED TO THAT AT THE BEGINNING OF MY SHIFT. ALSO, THE PT HAD A LITTLE WHEEZE. CALLED RT FOR A BREATHING TREATMENT, WHICH THEY ARE CURRENTLY ADMINISTERING. WILL CONTINUE TO MONITOR.
--- NOTE | 2017-02-23 04:17 | NUR ---
SHIFT SUMMARY: PT IS A&OX2-3, FRIENDLY AND COOPERATIVE, SLEPT WELL EXCEPT FOR INTERRUPTIONS (BLOOD DRAW, ETC.). A 2ND IV (20G) WAS PLACED DUE TO THE POSSIBILITY OF BLOOD INFUSION. VSS, DENIES SOA, PT IS ON 2L OXYGEN, BUT 02 WAS INCREASED TO 3L DUE TO SATURATION DROP, IV LOCKED, ON DROPLET PRECAUTIONS DUE TO INFLUENZA B, PLAVIX IS ON HOLD DUE TO THE GI BLEEDING. CALL LIGHT WITHIN REACH, BED ALARM ON.
[2017-02-23] MEDS: OMEPRAZOLE 20 MG CAPSULE PO SCH (05:35)
--- NOTE | 2017-02-23 06:33 | NUR ---
D/C LEFT IV: LEFT PERIPHERAL 20G IV INFILTRATED WHEN FLUSHING IT THIS MORNING. PT STATED SHE DID NOT WANT ANOTHER IV. THIS IV WAS FOR BLOOD PRODUCTS THAT MIGHT BE ADMINISTERED. PT STILL HAS A WORKING IV IN HER RIGHT HAND (22G).
[2017-02-23] MEDS: ALBUTEROL/IPRATROPIUM INHAL. 2.5mg-0.5mg/3ml Neb. AEROSOL SCH ×4 (07:11→19:09)
--- NOTE | 2017-02-23 08:23 | DI ---
INDICATION: ITS.REASON: influenza, respiratory failure PROCEDURE: CHEST 2-VIEWS UPRIGHT (PA \T\ LAT) Encounter: Initial COMPARISON: February 22, 2017 FINDINGS: Lungs are unchanged. No new consolidation. No gross pleural effusion or pneumothorax. Heart size and mediastinal contours are stable. Prior CABG. Impression: Stable appearance of the chest with increased interstitial markings. .
[2017-02-23] MEDS: FUROSEMIDE 20 MG TABLET PO SCH ×2 (08:48→17:12)
[2017-02-23] MEDS: GUAIFENESIN LA 600 MG TABLET PO SCH (08:48)
[2017-02-23] MEDS: OSELTAMIVIR 75 MG CAPSULE PO SCH ×2 (08:48→20:56)
[2017-02-23] MEDS: LOSARTAN 50 MG TABLET PO SCH (08:48)
[2017-02-23] MEDS: AMLODIPINE 5 MG TABLET PO SCH (08:49)
[2017-02-23] MEDS ORDERED: CLOPIDOGREL 75 MG TABLET PO SCH (09:00)
[2017-02-23] MEDS: POTASSIUM CHLORIDE 20 MEQ TABLET PO SCH ×2 (09:15→17:12)
--- NOTE | 2017-02-23 10:00 | NUR ---
Respiratory, Breath sounds are congested through out has a loose sounding cough. o2 is on at 2 liters Walked with p.t. and up in chair for lunch.
--- NOTE | 2017-02-23 10:17 | PNPDOC ---
ZOEY SIMS JAIDA 02/23/17 1017: Subjective Date DATE: 02/23/17 TIME: 10:09 Subjective Ana is feeling much better today. Her daughter is also present, and she agrees that Ana looks better. She is on oxygen but denies any shortness of breath. She continues to cough. No chest pain. She denies feeling weak, lightheaded or dizzy when she is up and ambulating within her room. She hasn't been ambulating the halls, and would like to go sit by the windows at the end of the hallway if possible. She denies any body aches. She denies any nausea or vomiting, and has been eating well. She states that she is now longer having dark colored stools, and asks if she can restart her Plavix. Objective Vital Signs Vital signs Vital Signs Date Time Temp Pulse Resp B/P Pulse Ox O2 Delivery O2 Flow Rate FiO2 02/23/17 08:04 96.0 92 20 125/50 92 Nasal Cannula 2.00 Height (Feet): 5 Height (Inches): 7.00 Weight (Kilograms): 64.200 General General Appearance: Alert, Orientated x 3, Well Nourished, Well Developed, No Acute Distress Eyes (Brief) Eyes: FOUND: PERRL, NOT FOUND: scleral icterus ENMT (Brief) ENMT: FOUND: mucosa moist, NOT FOUND: pharnyx erythema Respiratory (Brief) Respiratory: FOUND: equal bilaterally Comments Slight rhonchi Cardiovascular (Brief) Cardiac: FOUND: regular rate, regular rhythm Abdomen (Brief) Abdominal: FOUND: BS normo active x4, soft, NOT FOUND: distended, tender Extremities (Brief) Extremity : Side: Bilateral Extremity: leg, foot Extremity Finding: NOT FOUND: edema Musculoskeletal (Brief) Musculoskeletal: NOT FOUND: deformity, tenderness Integumentary (Brief) Integumentary: FOUND: dry, pink, warm Psychiatric (Brief) Psychiatric: FOUND: alert, attentive, normal affect, oriented Laboratory Laboratory Laboratory Tests 02/22/17 09:08 02/23/17 02:35 Laboratory Tests 02/22/17 09:08 02/22/17 19:09 02/23/17 02:35 Microbiology Microbiology Microbiology Date/Time Source Procedure Growth Status 02/22/17 09:08 Peripheral/Iv Start Blood Culture - Preliminary NO GROWTH AFTER 24 HOURS Resulted 02/22/17 09:08 Peripheral/Iv Start Blood Culture - Preliminary NO GROWTH AFTER 24 HOURS Resulted Sepsis Diagnostic Criteria Sepsis Confirmed/Suspected Infection: Yes SIRS Criteria: Pulse >= 90 beats/min, RR > or = to 20 Severe Sepsis SpO2 <90% or ventilated Assessment & Plan Problems: (1) Rectal bleed Status: Acute (2) Acute respiratory failure with hypoxia Status: Acute Assessment & Plan: present on admission. (3) Influenza B Status: Acute (4) Severe sepsis Status: Acute Assessment & Plan: present on admission secondary to influenza B as indicated by: * Tachycardia - HR 92. * Tachypnea - RR 32. * Hypoxia - SAO2 701% RA. (5) Hypertension Status: Chronic (6) Hyperlipidemia Status: Chronic Qualifiers: Hyperlipidemia type: unspecified Qualified Codes: E78.5 - Hyperlipidemia, unspecified (7) Anemia Status: Chronic Qualifiers: Anemia type: unspecified type Qualified Codes: D64.9 - Anemia, unspecified (8) Coronary arteriosclerosis after coronary artery bypass grafting Status: Chronic (9) S/P AVR Status: Chronic (10) Osteoarthritis Status: Chronic Qualifiers: Osteoarthritis location: multiple joints Osteoarthritis type: primary Qualified Codes: M15.0 - Primary generalized (osteo)arthritis (11) GERD (gastroesophageal reflux disease) Status: Chronic (12) Psoriasis Status: Chronic Plan/Intensity of Service Hypoxia - improving. Will try to wean oxygen today. Influenza B - continue precautions + Tamiflu. Discussed importance of covering your cough and good hand hygiene. Sepsis syndrome resolved. Mild pulmonary edema noted on CXR - continue Lasix BID. Clinical improvement noted; will defer decision for additional IV diuresis to attending. Rectal bleeding resolved per pt - will discuss resumption of Plavix with Dr. Rivera. Hgb 10.3. Continue PPI. Consult PT/OT and encourage ambulation. DVT Prophylaxis: SCD'S Code Status Do Not Resuscitate Hospital Course Summary Disclaimer The hospital course summary below is not to be considered part of the above Progress Note. Hospital Course Summary 02/22/17: ADMIT. Sydnee/Miguel. - Severe Sepsis with respiratory failure and acute hypoxia secondary to Influenza B: * Present on admission 02/22/17 secondary to Influenza B as indicated by: * Tachycardia (HR 92). * Tachypnea (RR 32). * Hypoxia (SAO2 70% RA) * Admit to inpatient status under the care of Dr. Rivera and hospitalist service. * Initiate NS 60cc/hr for gentle hydration as CXR shows signs of pulmonary congestion without focal infiltrate. * Continuous oxygen to maintain SAO2 > 92%. Wean as able. Patient does not use home O2. Monitor closely on telemetry in light of cardiac history and risk of deterioration. * Continue respiratory support with DuoNeb treatments. Try and obtain sputum culture for further evaluation. * Initiate Tamiflu for treatment of influenza B.Antibiotics are not indicated at this time as no signs of bacterial infection and patient was recently on cefdinir x 4 days without improvement. * Repeat CXR in AM and repeat lactate at 1530. * SCDs for DVT prophylaxis. * Tessalon pearls for cough suppression and Mucinex for mucolytic effect. * Will recheck CBC and BMP in AM to monitor blood counts, electrolytes and renal function. - Hypertension, chronic: * Continue home medications - amlodipine,losartan and metoprolol. * Continue home daily Lasix 20mg BID with KCl supplementation. In light of report of recent weight gain and signs of congestion on CXR, will give additional Lasix 20mg IV now. Monitor daily weights and I&O closely for signs of fluid overload. Discontinue IV fluids once oral intake improves. * Continue home Plavix in light of CAD. - Hyperlipidemia, chronic: * Continue home Lipitor. - Anemia, chronic: * Present on admission-hgb 10.9. Monitor closely throughout admission. Patient reports blood in stool x 1, 2-3 days ago. Will obtain Hemoccult and monitor both stools and hemoglobin closely. - GERD: * Continue home Prilosec for GERD and GI protection. * Cardiac diet. Discussed code status with patient and family and she requests DNR STATUS at this time. Upon discharge, patient's care will be returned to her PCP, Dr. Barrera. type and cross 2 units of blood and have on hold. Will obtain hemoglobin every 8 hours. We'll check an INR and PTT. Will hold Plavix for now. The patient is very worried about holding the Plavix because she stated that her sister was off Plavix for 3 days for dental work and unfortunately suffered a stroke. The patient states she would rather than have a stroke herself. We discussed watching day by day how her blood count is doing and whether bleeding continues and deciding on a daily basis whether or not to restart Plavix. She is okay with this plan for now. Will check GI panel regarding rectal bleeding. May need to consider colonoscopy/surgery consult if bleeding continues. 02/23/17 Hypoxia - improving. Will try to wean oxygen today. Influenza B - continue precautions + Tamiflu. Discussed importance of covering your cough and good hand hygiene. Sepsis syndrome resolved. Mild pulmonary edema noted on CXR - continue Lasix BID. Clinical improvement noted; will defer decision for additional IV diuresis to attending. Rectal bleeding resolved per pt - will discuss resumption of Plavix with Dr. Rivera. Hgb 10.3. Continue PPI. Consult PT/OT and encourage ambulation. SANDEEP RIVERA MD 02/23/17 1810: Assessment & Plan Assessment 02/23/2017-I reviewed this chart, the patient history, and the BIOSECURITY OFFICER's/PA's documented findings as above. We discussed and formulated the assessment and plan as above with the additions below.-Dr. Rivera Patient states that she's feeling much better today. She no longer feels short of breath. She still has a cough, but it is improving. She denies any chest pain. Most recently she states she had a stool that was brow and without either red blood or being black. For the previous 2 days she had been having dark stools with some red blood. She also was complaining of epigastric pain after drinking soda pop but this is now resolved. She is very worried about risk of stroke off of Plavix. She has 2 sisters who have had devastating strokes. I did ask Dr. Briseno to see the patient regarding rectal bleeding and his evaluation and recommendations were appreciated. The patient and her daughter spoke with Dr. Briseno and the patient decided she wanted to restart her Plavix to decrease her risk of stroke. She states that she understands that there is increased risk for recurrence of GI bleeding and understands that bleeding could be so severe that it could cause . She states she would rather than have a stroke. On exam she is alert and oriented and in no acute distress. Chest reveals some mild end expiratory wheezes. Cardiovascular reveals a regular rate and rhythm. Abdomen is soft and nontender. Extremities are free of edema. Neurologic reveals no focal deficits. I did return around 6 PM this evening and talked again with the patient and with her daughter. We discussed the risks and benefits of restarting versus not restarting Plavix in this situation. The patient again reiterates that she would like to restart the Plavix to decrease her risk of stroke. Her daughter wants to follow her mom's wishes and agrees with restarting Plavix. They both understand that there is risk for recurrent bleeding and some risk for severe bleeding. Will resume Plavix for stroke prevention. Continue until hemoglobin monitoring for now and continue to monitor on telemetry. Continue to monitor for signs of recurrence of GI bleeding. Regarding acute hypoxic respiratory failure, the patient is still requiring 2 L of oxygen but is feeling much better. Recheck chest x-ray tomorrow. Continue Tamiflu and breathing treatments. We'll resume the patient's usual diuretic. Repeat CBC and basic metabolic profile tomorrow. Greater than 35 minutes of time was spent seeing and evaluating the patient, talking with Dr. Briseno and talking with family. ZOEY SIMS APRN Feb 23, 2017 10:17 SANDEEP RIVERA MD Feb 23, 2017 18:10
--- NOTE | 2017-02-23 11:39 | NUR ---
STARLA CHA VISITED PT AND DAUGHTER. CM EXPLAINED ROLE AND PROVIDED CONTACT INFORMATION. PT PLANS TO RETURN HOME POST HOSPITAL STAY. PT DENIES NEEDS AT THIS TIME. PT IS AWARE THAT SHE MAY NEED OXYGEN AT TIE OF D/C FROM [facility]. PT WILL USE [facility] FOR OXYGEN NEEDS. PT IS AWARE TO CONTACT CM IF NEEDS [facility].
--- NOTE | 2017-02-23 12:09 | CONSPD ---
Consultation Info Date DATE: 02/23/17 TIME: 11:59 Date of Consultation: Feb 23, 2017 Reason for Consultation: rectal bleeding,on Plavix HPI - Adult Date DATE: 02/23/17 TIME: 11:59 General Chief Complaint: respiratory failure with hypoxia, influenza B History of Present Illness Per DR. Briseno Past Medical History Past Medical History 1. Hypertension 2. Hyperlipidemia 3. Psoriasis 4. Gastric ulcers x2 in 2009 5. Gastroesophageal reflux disease 6. Anemia, chronic 7. Peripheral artery disease 8. Degenerative joint disease 9. 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 Osteoarthritis 6. Chronic anemia 7. Renal stent, indication unclear 8. Diverticulosis 9. Hemorrhoids Surgical History Patient's Surgical History: -Aortic tissue valve replacement 2010 -left cartid endarterectomy age 70 -right carotid endarterectomy age 72 1. Cholecystectomy age 53 2. Colonoscopy 01-28-2010 hemorrhoids, diverticulosis,, tubular adenoma x1, hyperplastic polylps x1, Dr. Gandhi 3. EGD 01-25-[address] Gandhi 4. EGD 07-04-2010 2 gatric ulcers improved but not gone Dr. Gandhi 5. AVR, tissue valve 2010 6. Right TKA 7. Bilateral cataract extractions 8. Carotid angiogram 11/22/14 9. left brast biopsy 10. uterine polypectomy Current Medications Home Meds Reported Medications Benzonatate (Benzonatate) 100 Mg Capsule, 100 MG PO TID Y for COUGH 02/22/17 Cefdinir (Cefdinir) 300 Mg Capsule, 300 MG PO TID 02/22/17 Metoprolol Tartrate (Metoprolol Tartrate) 25 Mg Tablet, 25 MG PO BIDWM 02/22/17 Losartan Potassium (Losartan Potassium) 50 Mg Tablet, 50 MG PO DAILY 02/22/17 Guaifenesin (Mucinex) 1,200 Mg Tbbp.12hr, 1200 MG PO DAILY 02/22/17 Albuterol Sulfate (Ventolin HFA 90 mcg/actuation) 18 Gm Hfa.aer.ad, 2 PUFF ORAL INH Q4H Y for SHORTNESS OF AIR/WHEEZING 02/22/17 Atorvastatin Calcium (Atorvastatin Calcium) 40 Mg Tablet, 40 MG PO HS 12/21/16 Furosemide (Furosemide) 20 Mg Tablet, 20 MG PO BID 10/09/15 Clopidogrel Bisulfate (Plavix) 75 Mg Tablet, 75 MG PO DAILY 07/08/15 Amlodipine Besylate (Amlodipine Besylate) 5 Mg Tablet, 5 MG PO DAILY 07/08/15 Omeprazole (Prilosec) 40 Mg Capsule.dr, 40 MG PO DAILY 07/08/15 Potassium Chloride (Potassium Chloride) 20 Meq Tab.prt.sr, 20 MEQ PO BID 07/04/10 Allergies: Coded Allergies: telithromycin (Verified Allergy, Severe, SWELLING OF FACE, 02/22/17) benazepril (Verified Adverse Reaction, Mild, CAUSES DRY MOUTH, COUGH, ) PATIENT REPORTS Family History Family History: 2 sisters had strokes, additionally diabetes, hypertension, cardiac disease reported in the family Social History Smoking Status: Former smoker (quit in 2002) Does patient use chewing tobac: No # of Packs/Tins per Day: 1 # of Years: 10 Second Hand Exposure: No Quit Date: Nov 23, 2002 Substance Use Type: does not use Alcohol Intake: none Marital Status: Housing: house Household Members: other (lives alone) Current Occupational Status: retired Advance Directives: Yes DNR, No DPOA for Healthcare Only GS Review of Systems Respiratory REPORTS difficulty breathing, REPORTS cough Gastrointestional REPORTS hemorrhoids, REPORTS other (see HPI) Hematologic REPORTS easy bruising, REPORTS use of blood thinners 10-point Review of Systems otherwise negative except HPI GS Physical Exam Vital Signs Date Time Temp Pulse Resp B/P Pulse Ox O2 Delivery O2 Flow Rate FiO2 02/23/17 10:45 85 02/23/17 10:35 18 94 02/23/17 10:35 Nasal Cannula 1.50 02/23/17 08:04 96.0 125/50 Height (Feet): 5 Height (Inches): 7.00 Weight (Kilograms): 64.200 BMI 22.4 Laboratory Laboratory Tests 02/22/17 09:08 02/23/17 02:35 Laboratory Tests 02/22/17 09:08 02/22/17 19:09 02/23/17 02:35 02/23/17 10:17 LENNIE VERDIN APRN, CWS Feb 23, 2017 12:02
--- NOTE | 2017-02-23 15:09 | CONSF ---
DATE OF CONSULTATION 02/23/2017 FINDINGS Mrs. Marte is an 82-year-old female whom I was asked to see today as a new patient as a result of her history for rectal bleeding. Patient informs me that about a week ago she began to notice a cough and some shortness of breath. Patient states she was begun on antibiotics on an outpatient basis. The patient's daughter states that over the course of the weekend the patient did have a couple of episodes where she had passed some bloody stools. Upon questioning the patient, she states that these were "dark in nature." The patient's daughter states that she had read the antibiotic warning and it did state that that "the antibiotic could cause bleeding." On Thursday the patient's daughter states that the patient began to become increasingly more short of breath and they had presented to the emergency room for further evaluation. The patient was subsequently admitted to our facility. She has been found be positive for influenza B. Patient states that her respiratory status is somewhat better today. She states she has had no further episodes of rectal bleeding since admission. Upon questioning the patient she denies any element of abdominal pain. She does inform me she has a past history of having ulcers. She denies any recent significant nonsteroidal use such as aspirin or ibuprofen. Denies any alcohol intake. Her last endoscopic evaluation of her esophagus and colon was in 2009. She was found to have peptic ulcer disease at that time. Additionally, she was found have a tubular adenoma as well upon prior colonoscopy. PAST MEDICAL HISTORY Performed by my nurse practitionerHay. PAST SURGICAL HISTORY Performed by my nurse practitionerHay. MEDICATIONS Performed by my nurse practitionerHay. ALLERGIES Performed by my nurse practitionerHay. SOCIAL HISTORY Performed by my nurse practitionerHay. FAMILY HISTORY Performed by my nurse practitionerHay. REVIEW OF SYSTEMS Performed by my nurse practitionerHay. PHYSICAL EXAMINATION Mrs. Marte is a 82-year-old female who does not appear to be in acute distress. VITALS: Temperature 96.0. Pulse 85. Respirations 18. Blood pressure 125/50. SaO2 97% on 1.5 liter per nasal cannula. HEENT: Normocephalic. Pupils equal, round, reactive to light and accommodation. NECK: Supple without lymphadenopathy. CHEST: Clear auscultation bilaterally. HEART: Regular rate and rhythm. ABDOMEN: Soft, nontender. No evidence of hepatomegaly or other abnormal masses.. EXTREMITIES: Without clubbing, cyanosis, or edema. NEURO: Cranial nerves II-XII grossly intact. Patient is without focal motor or sensory deficits. LABORATORY/RADIOGRAPH EVALUATION The patient was anemic upon admission with a hemoglobin of 10.9. Overall her hemoglobin has been fairly stable. Today her hemoglobin is 10.0. She did undergo Hemoccult testing of her stools which did return as positive in nature. BMP was obtained today and found to be essentially within normal limits. As stated above, her influenza B was positive. Bleeding times were obtained including an INR and PTT which were within normal limits. ASSESSMENT 82-year-old female with associated medical comorbidities who recently was admitted secondary to hypoxia as a result of influenza B. Patient with recent history for rectal bleeding. Patient with known history for peptic ulcer disease in the past. PLAN I did review the patient's chart electronically. I do see the patient is being treated empirically for peptic ulcer disease and currently is on Prilosec. The patient, additionally, is being treated in regards to her influenza and respiratory status. From a general surgical standpoint, I informed the patient and her daughters that one could make an argument for proceeding with endoscopy to rule out peptic ulcer disease given her history for melena and her past medical history significant for peptic ulcer disease. The patient has only been off of her Plavix for one day and would require a longer duration off of her Plavix before proceeding with endoscopy. Another option would be to go ahead and resume her Plavix with the understanding there is some risk associated with restarting her Plavix if she does indeed have peptic ulcer disease. I would recommend we treat her empirically for peptic ulcer disease and continue on a proton pump inhibitor. Pros and cons of proceeding with endoscopy were discussed with the patient and her family. At this point in time the patient did not wish to proceed with any type of additional endoscopic evaluation. I informed the patient, however, if she would develop recurrent rectal bleeding or develop progressive anemia, that I would recommend at that point in time more strongly proceeding with endoscopic evaluation. The patient and family understood and agreed with the proposed plan at this time. SHERIDAN
[2017-02-23 18:16] LABS: HGB - HEMOGLOBIN 10.3 GM/DL (12-16)
[2017-02-23] MEDS: CLOPIDOGREL 75 MG TABLET PO SCH (18:44)
--- NOTE | 2017-02-23 19:11 | NUR ---
shift status resting in chair walks to the br voids well. o2 remains at 2 liters no bloody stools noted this shift,
[2017-02-23] MEDS: ATORVASTATIN 40 MG TABLET PO SCH (20:56)
[2017-02-24] VITALS (7 sets, daily range): BP systolic 114–127; BP diastolic 53–72; PULSE 89–100; RESP 18; TEMP 95.9–97.2; O2SAT 92–96
[2017-02-24 02:45] LABS: BASOPHILS % (AUTO) 0.3 % (0-2); EOSINOPHILS # (AUTO) 0.1 T/MM3 (0-0.5); EOSINOPHILS % (AUTO) 2.1 % (0-4); HGB - HEMOGLOBIN 10.1 GM/DL (12-16); IMMATURE GRANULOCYTE # (AUTO) 0.02 T/MM3 (0.00-0.03); IMMATURE GRANULOCYTE % (AUTO) 0.3 % (0.0-0.5); LYMPHOCYTES % (AUTO) 14.7 % (23-45); MEAN CORPUSCULAR HGB 27.4 UUG (26-34); MEAN CORPUSCULAR HGB CONC(MCHC 30.6 GM/DL (31-37); MEAN CORPUSCULAR VOLUME 89.7 UM3 (80-100); MEAN PLATELET VOLUME 9.8 UM3 (9.4-12.4); MONOCYTES # (AUTO) 0.7 T/MM3 (0-0.8); MONOCYTES % (AUTO) 10.2 % (0-9.0); NEUTROPHILS #(AUTO)-ABSOLUTE 4.9 T/MM3 (1.8-7.7); NEUTROPHILS % (AUTO) 72.4 % (33-66); RED BLOOD COUNT 3.68 M/MM3 (4.00-5.20); WBC - WHITE BLOOD COUNT 6.8 T/MM3 (4.5-11.0)
[2017-02-24 02:58] LABS: ANION GAP 10 MEQ/L (5-15); BUN/CREATININE RATIO 27 RATIO (6-26); CALCIUM 8.5 MG/DL (8.4-10.2); CHLORIDE 101 MEQ/L (98-107); CO2 - CARBON DIOXIDE 32 MEQ/L (22-30); CREATININE 0.7 MG/DL (0.7-1.2); GLOMERULAR FILTRATION RATE 80; GLUCOSE 110 MG/DL (65-110); POTASSIUM 3.9 MEQ/L (3.6-5); SODIUM 143 MEQ/L (134-144)
--- NOTE | 2017-02-24 03:35 | NUR ---
SHIFT SUMMARY: PT IS A&OX2-3, FRIENDLY AND COOPERATIVE, UP TO THE BATHROOM A NUMBER OF TIMES DURING THE NIGHT (PT STATES SHE HAS BEEN DRINKING MORE WATER). VSS, SCD'S, DENIES SOA, ON 2L OXYGEN, IV LOCKED, ON DROPLET PRECAUTIONS FOR INFLUENZA B. ABLE TO GET A BM SAMPLE FOR LAB TO RUN A GI PANEL. CALL LIGHT WITHIN REACH, BED ALARM ON.
[2017-02-24] MEDS: OMEPRAZOLE 20 MG CAPSULE PO SCH (05:30)
[2017-02-24] MEDS: ALBUTEROL/IPRATROPIUM INHAL. 2.5mg-0.5mg/3ml Neb. AEROSOL SCH (07:23)
[2017-02-24] MEDS: CLOPIDOGREL 75 MG TABLET PO SCH (08:12)
[2017-02-24] MEDS: LOSARTAN 50 MG TABLET PO SCH (08:12)
[2017-02-24] MEDS: POTASSIUM CHLORIDE 20 MEQ TABLET PO SCH (08:12)
[2017-02-24] MEDS: FUROSEMIDE 20 MG TABLET PO SCH (08:13)
[2017-02-24] MEDS: OSELTAMIVIR 75 MG CAPSULE PO SCH (08:13)
[2017-02-24] MEDS: GUAIFENESIN LA 600 MG TABLET PO SCH (08:14)
[2017-02-24] MEDS: AMLODIPINE 5 MG TABLET PO SCH ×2 (08:16→08:18)
--- NOTE | 2017-02-24 08:20 | NUR ---
norvasc held bp 114/72 for parameter to hold if bp less than 120.
--- NOTE | 2017-02-24 09:26 | PNPDOC ---
ZOEY SIMS SUPERVISOR QUILTING 02/24/17 0920: Subjective Date DATE: 02/24/17 TIME: 09:17 Subjective Ana states that she feels much better today. She no longer feels short of breath, and she states that her cough is starting to loosen up. Her daughter states that she looks better today as well. She rested well last night and feels ready to go home. She typically needs to be sent home on oxygen after hospitalization. She worked well with physical therapy and was found to be at PLOF, and they did not recommend any skilled therapy. She denies any chest pain. No abdominal pain or GI complaints. No black/bloody stools. Objective Vital Signs Vital signs Vital Signs Date Time Temp Pulse Resp B/P Pulse Ox O2 Delivery O2 Flow Rate FiO2 02/24/17 07:52 97.2 100 18 114/72 95 Nasal Cannula 1.50 Height (Feet): 5 Height (Inches): 7.00 Weight (Kilograms): 63.900 General General Appearance: Alert, Orientated x 3, Well Nourished, Well Developed, No Acute Distress Eyes (Brief) Eyes: FOUND: PERRL, NOT FOUND: scleral icterus ENMT (Brief) ENMT: FOUND: mucosa moist, NOT FOUND: pharnyx erythema Respiratory (Brief) Respiratory: FOUND: clear all park, equal bilaterally, NOT FOUND: rales Comments slightly labored; minimal use of accessory muscles Cardiovascular (Brief) Cardiac: FOUND: regular rate, regular rhythm Abdomen (Brief) Abdominal: FOUND: BS normo active x4, soft, NOT FOUND: distended Musculoskeletal (Brief) Musculoskeletal: NOT FOUND: tenderness Integumentary (Brief) Integumentary: FOUND: dry, pink, warm Psychiatric (Brief) Psychiatric: FOUND: alert, attentive, normal affect, oriented Laboratory Laboratory Laboratory Tests 02/23/17 02:35 02/24/17 02:37 Laboratory Tests 02/22/17 19:09 02/23/17 02:35 02/23/17 10:17 02/23/17 18:08 02/24/17 02:37 Microbiology Microbiology Microbiology Date/Time Source Procedure Growth Status 02/22/17 09:08 Peripheral/Iv Start Blood Culture - Preliminary NO GROWTH AFTER 48 HOURS Resulted 02/22/17 09:08 Peripheral/Iv Start Blood Culture - Preliminary NO GROWTH AFTER 48 HOURS Resulted Sepsis Diagnostic Criteria Sepsis Confirmed/Suspected Infection: Yes SIRS Criteria: Pulse >= 90 beats/min, RR > or = to 20 Severe Sepsis SpO2 <90% or ventilated Assessment & Plan Problems: (1) Rectal bleed Status: Acute (2) Acute respiratory failure with hypoxia Status: Acute Assessment & Plan: present on admission. (3) Influenza B Status: Acute (4) Severe sepsis Status: Resolved Assessment & Plan: present on admission secondary to influenza B as indicated by: * Tachycardia - HR 92. * Tachypnea - RR 32. * Hypoxia - SAO2 701% RA. 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 She has a history of requiring home O2 following hospitalization. She is comfortable discharging home with oxygen. Will ask respiratory therapy to assess and ambulatory oximetry today. Respirations were slightly labored on exam, will repeat chest x- ray to assess fluid status. Influenza B - continue precautions + Tamiflu. Rectal bleeding resolved per pt -patient was seen by Dr. Briseno yesterday. Plavix was restarted, and the patient and her daughter both understand the risks. Serial hemoglobins have remained stable. She was evaluated by physical therapy yesterday and was found to be at her previous level of functioning and did not require skilled therapy. Discharge planning: Anticipate discharge soon. Will discuss further with attending. DVT Prophylaxis: SCD'S Code Status Do Not Resuscitate Hospital Course Summary Disclaimer The hospital course summary below is not to be considered part of the above Progress Note. Hospital Course Summary 02/22/17: ADMIT. Sydnee/Miguel. - Severe Sepsis with respiratory failure and acute hypoxia secondary to Influenza B: * Present on admission 02/22/17 secondary to Influenza B as indicated by: * Tachycardia (HR 92). * Tachypnea (RR 32). * Hypoxia (SAO2 70% RA) * Admit to inpatient status under the care of Dr. Rivera and hospitalist service. * Initiate NS 60cc/hr for gentle hydration as CXR shows signs of pulmonary congestion without focal infiltrate. * Continuous oxygen to maintain SAO2 > 92%. Wean as able. Patient does not use home O2. Monitor closely on telemetry in light of cardiac history and risk of deterioration. * Continue respiratory support with DuoNeb treatments. Try and obtain sputum culture for further evaluation. * Initiate Tamiflu for treatment of influenza B.Antibiotics are not indicated at this time as no signs of bacterial infection and patient was recently on cefdinir x 4 days without improvement. * Repeat CXR in AM and repeat lactate at 1530. * SCDs for DVT prophylaxis. * Tessalon pearls for cough suppression and Mucinex for mucolytic effect. * Will recheck CBC and BMP in AM to monitor blood counts, electrolytes and renal function. - Hypertension, chronic: * Continue home medications - amlodipine,losartan and metoprolol. * Continue home daily Lasix 20mg BID with KCl supplementation. In light of report of recent weight gain and signs of congestion on CXR, will give additional Lasix 20mg IV now. Monitor daily weights and I&O closely for signs of fluid overload. Discontinue IV fluids once oral intake improves. * Continue home Plavix in light of CAD. - Hyperlipidemia, chronic: * Continue home Lipitor. - Anemia, chronic: * Present on admission-hgb 10.9. Monitor closely throughout admission. Patient reports blood in stool x 1, 2-3 days ago. Will obtain Hemoccult and monitor both stools and hemoglobin closely. - GERD: * Continue home Prilosec for GERD and GI protection. * Cardiac diet. Discussed code status with patient and family and she requests DNR STATUS at this time. Upon discharge, patient's care will be returned to her PCP, Dr. Barrera. type and cross 2 units of blood and have on hold. Will obtain hemoglobin every 8 hours. We'll check an INR and PTT. Will hold Plavix for now. The patient is very worried about holding the Plavix because she stated that her sister was off Plavix for 3 days for dental work and unfortunately suffered a stroke. The patient states she would rather than have a stroke herself. We discussed watching day by day how her blood count is doing and whether bleeding continues and deciding on a daily basis whether or not to restart Plavix. She is okay with this plan for now. Will check GI panel regarding rectal bleeding. May need to consider colonoscopy/surgery consult if bleeding continues. 02/23/17 Hypoxia - improving. Will try to wean oxygen today. Influenza B - continue precautions + Tamiflu. Discussed importance of covering your cough and good hand hygiene. Sepsis syndrome resolved. Mild pulmonary edema noted on CXR - continue Lasix BID. Clinical improvement noted; will defer decision for additional IV diuresis to attending. Rectal bleeding resolved per pt - will discuss resumption of Plavix with Dr. Rivera. Hgb 10.3. Continue PPI. Consult PT/OT and encourage ambulation. 02/24/17 Hypoxia - she is still requiring 1-1 1/2 L of oxygen. She has a history of requiring home O2 following hospitalization. She is comfortable discharging home with oxygen. Will ask respiratory therapy to assess and ambulatory oximetry today. Respirations were slightly labored on exam, will repeat chest x- ray to assess fluid status. Influenza B - continue precautions + Tamiflu. Rectal bleeding resolved per pt -patient was seen by Dr. Briseno yesterday. Plavix was restarted, and the patient and her daughter both understand the risks. Serial hemoglobins have remained stable. She was evaluated by physical therapy yesterday and was found to be at her previous level of functioning and did not require skilled therapy. Discharge planning: Anticipate discharge soon. Will discuss further with attending. ROSA ISELA SORIANO MD 02/24/17 3444: Assessment & Plan Assessment I have independently evaluated and examined this patient. I reviewed the chart, the patient's history, and the SUPERVISOR QUILTING's documented findings as above. We discussed and formulated the assessment and plan as above with additions as below: Mrs. Marte was seen with her daughter at bedside. Patient reports no further rectal bleeding and reports that her breathing has returned to baseline. She is afebrile but continues to require low flow supplemental oxygen. On room air oxygen saturation dropped to 70% at rest and with activity patient required 2 L of supplemental oxygen to maintain saturation of 91%. On examination the patient is alert and cooperative, speech is fluent. Respirations are nonlabored with good airflow. Breath sounds are clear but she continues to have a coarse sounding cough. Cardiac rhythm is regular and abdomen benign. Discussed with case management-2 L supplemental oxygen at rest and activities being arranged for discharge later today. 3 additional days of Tamiflu to complete course for influenza B. Stable for discharge home today; will continue Plavix and notify Dr. Barrera if any recurrent rectal bleeding. ZOEY SIMS APRN Feb 24, 2017 09:20 ROSA ISELA SORIANO MD Feb 24, 2017 14:54
--- NOTE | 2017-02-24 10:24 | DI ---
INDICATION: ITS.REASON: f/u pulm congestion PROCEDURE: CHEST 2-VIEWS UPRIGHT (PA \T\ LAT) Encounter: Initial COMPARISON: February 23, 2017 FINDINGS: The lungs are stable in appearance. Trace left pleural effusion. No new consolidation or pneumothorax. Heart size and mediastinal contours are stable. Prior CABG. Mild vascular prominence has improved. Impression: Improving vascular congestion. Trace pleural effusion. .
[2017-02-24 10:31] LABS: HGB - HEMOGLOBIN 10.4 GM/DL (12-16)
--- NOTE | 2017-02-24 10:31 | NUR ---
CM CM VISITED WITH PT/DAUGHTER REGARDING ROT PROGRAM. CM PROVIDED FLIER. PT HAS AGREED TO ROT PROGRAM.
[2017-02-24] MEDS ORDERED: ALBUTEROL/IPRATROPIUM INHAL. 2.5mg-0.5mg/3ml Neb. AEROSOL SCH (11:00)
--- NOTE | 2017-02-24 12:10 | NUR ---
oxygen o2 removed will check o2 sats in 30 min.
--- NOTE | 2017-02-24 12:23 | NUR ---
o2 sat on room air is 70% o2 2 liters reappled
[2017-02-24] MEDS ORDERED: OSEL75CA PO (14:42)
--- NOTE | 2017-02-24 14:57 | NUR ---
STARLA CM SPOKE WITH DR SORIANO AND PT WILL D/C HOME TODAY. PT WILL NEED OXYGEN. PT WILL USE [employer] FOR OXYGEN SUPPLIES. CHILD CARE ATTENDANT WILL BRING TANKS TO [facility] [place]. PT IS AWARE TO CONTACT CM IF NEEDS ARISE.
--- NOTE | 2017-02-24 15:14 | NUR ---
[facility] [place]. PT/FAMILY AWARE TO CONTACT [facility] WHEN THEY GET HOME. CM PROVIDED THEM WITH [facility] CONTACT INFORMATION. PT IS AWARE TO CONTACT IF NEEDS ARISE.
--- NOTE | 2017-02-24 15:45 | NUR ---
ivl tele and o2 sat monitors dc;d dc instuctions reviewed with pt dc per wc and o2 with son inllynette to her home.
--- NOTE | 2017-02-24 16:17 | DSPDOC ---
ZOEY SIMS BEHAVIORAL HEALTH CONSULTANT 02/24/17 1613: General Date Date DATE: 02/24/17 TIME: 16:08 Attending Physician Siobhan Rivera MD Admitting Physician Siobhan Rivera MD Consulting Physician Jj Briseno MD,Facs,Cws Admitting Diagnosis influenza B Discharge Diagnosis Influenza B Hypoxia-needs home O2. Rectal bleed-stable Laboratory Laboratory Tests Test 02/23/17 10:17 02/23/17 18:08 02/24/17 02:08 02/24/17 02:37 Hemoglobin 10.0GM/DL (12-16) 10.3GM/DL (12-16) 10.1GM/DL (12-16) Stool Cyclospora species Detection Negative (NEGATIVE) Stool Rotavirus A PCR Negative (NEGATIVE) Stool Adenovirus (PCR) Negative (NEGATIVE) Stool Astrovirus (PCR) Negative (NEGATIVE) Stool Campylobacter PCR Negative (NEGATIVE) Stool C. difficile Toxin (PCR) Negative (NEGATIVE) Stool Cryptosporidium PCR Negative (NEGATIVE) Stool E. coli Shiga Toxins Negative (NEGATIVE) Stool E coli O157 PCR (NA/NEG) Stool Enterotoxigenic Ecoli PCR Negative (NEGATIVE) Stool Enteropathogenic E. coli (PCR Negative (NEGATIVE) Stool Enteroaggregative E. coli PCR Negative (NEGATIVE) Stool Entamoeba (PCR) Negative (NEGATIVE) Stool Giardia Lamblia PCR Negative (NEGATIVE) Stool Salmonella PCR Negative (NEGATIVE) Stool Sapovirus (PCR) Negative (NEGATIVE) Stool Plesiomonas shigelloides PCR Negative (NEGATIVE) Stool Shigella/EIEC (PCR) Negative (NEGATIVE) Stool Yersinia enterocolitica (PCR) Negative (NEGATIVE) Stool Vibrio (PCR) Negative (NEGATIVE) Stool Vibrio cholera (PCR) Negative (NEGATIVE) Stool Norovirus GI/GII PCR Negative (NEGATIVE) White Blood Count 6.8T/MM3 (4.5-11.0) Red Blood Count 3.68M/MM3 (4.00-5.20) Hematocrit 33.0% (36-46) Mean Corpuscular Volume 89.7UM3 (80-100) Mean Corpuscular Hemoglobin 27.4UUG (26-34) Mean Corpuscular Hemoglobin Concent 30.6GM/DL (31-37) RDW Standard Deviation 57.2FL (36.9-50.2) Platelet Count 198T/MM3 (130-400) Mean Platelet Volume 9.8UM3 (9.4-12.4) Immature Granulocyte % (Auto) 0.3% (0.0-0.5) Neutrophils (%) (Auto) 72.4% (33-66) Lymphocytes (%) (Auto) 14.7% (23-45) Monocytes (%) (Auto) 10.2% (0-9.0) Eosinophils (%) (Auto) 2.1% (0-4) Basophils (%) (Auto) 0.3% (0-2) Absolute Immature Granulocyte (auto 0.02T/MM3 (0.00-0.03) Absolute Neutrophils (auto) 4.9T/MM3 (1.8-7.7) Absolute Lymphocytes (auto) 1.0T/MM3 (1-4.8) Absolute Monocytes (auto) 0.7T/MM3 (0-0.8) Absolute Eosinophils (auto) 0.1T/MM3 (0-0.5) Absolute Basophils (auto) 0.0T/MM3 (0-0.2) Turbidity < 20 (0-20) Sodium Level 143MEQ/L (134-144) Potassium Level 3.9MEQ/L (3.6-5) Chloride Level 101MEQ/L (98-107) Carbon Dioxide Level 32MEQ/L (22-30) Anion Gap 10MEQ/L (5-15) Blood Urea Nitrogen 19.0MG/DL (7-17) Creatinine 0.7MG/DL (0.7-1.2) Glomerular Filtration Rate Calc 80 BUN/Creatinine Ratio 27RATIO (6-26) Glucose Level 110MG/DL (65-110) Calculated Osmolality 278MOSM/KG (261-280) Calcium Level 8.5MG/DL (8.4-10.2) Icterus Index < 2 (0-7) Chemistry Specimen Hemolysis < 15 (0-25) Test 02/24/17 10:25 Hemoglobin 10.4GM/DL (12-16) Microbiology Microbiology Date/Time Source Procedure Growth Status 02/22/17 09:08 Peripheral/Iv Start Blood Culture - Preliminary NO GROWTH AFTER 48 HOURS Resulted 02/22/17 09:08 Peripheral/Iv Start Blood Culture - Preliminary NO GROWTH AFTER 48 HOURS Resulted Radiology CXR 02/22/17 & 02/23/17: increased interstitial markings. CXR 02/24/17: Improving vascular congestion. Trace pleural effusion. History of Present Illness Ana Marte is a very pleasant 82-year-old female who presented to [facility] emergency department today, 02/22/17, for evaluation of dyspnea and progressive productive cough. Her daughter is present on the exam and contributes to the history. She reports that on 02/17/17 both she and her daughter started to have a cough. They were both seen by her PCP, Dr. Barrera, on 02/18 and both started on cefdinir for coverage of pulmonary antimicrobials. She states that despite the antibiotic, her cough continued to worsen with yellow sputum and she became more short of breath. She denies any known fevers or chills. No chest pain, abdominal pain, nausea, vomiting or dysuria. This morning she became extremely short of breath and was brought to [facility] emergency room for further evaluation. Upon arrival, she was noted to be hypertensive with blood pressure 175/72, tachypneic with respiratory rate 32, tachycardic with heart rate 92 and hypoxic at 70% on room air. No documented temperature from arrival. She was immediately placed on 2L oxygen and given a DuoNeb breathing treatment which improved her saturations to 99%. Labs were obtained and were relatively unremarkable - WBC 6.3, hgb 10.9 (history of chronic anemia), Plt 183, Na+ 141, K+ 4.6, BUN 18, SCr 0.7 and Gl 113. BNP was elevated at 2630 and she admits to some recent weight gain despite decreased in her appetite. She states she weighs herself regularly but can not clarify how much weight gain. Troponin was negative at <0.012. Respiratory panel was positive for Influenza B. Chest x -ray showed increased pulmonary congestion without focal infiltrate noted and was reviewed by myself and Dr. Rivera. Due to her respiratory failure with hypoxia secondary to influenza B, severe sepsis and increased risk for deterioration due to her age and cardiac history, Dr. Rivera was contacted and she was admitted into inpatient status for further evaluation and close respiratory monitoring with respiratory support. Her length of stay is expected to exceed more than 2 over nights. Discussed patient code wishes on exam and patient requests to be DNR at this time. She is seem immediately upon her arrival to her room, #[id number], with her daughter and nurse at the bedside. She is alert and orientated x3 with a very pleasant disposition. She is noted to have increased respiratory effort with accessory muscle use despite 2L NC present. Cardiac exam reveals tachycardia with click consistent with history of aortic valve replacement. Lungs are diminished in right lower lobe with wheezing and bibasilar rales posteriorly and wheezing and rhonchi noted on anterior auscultation. Active wet, productive cough on exam. Abdomen is soft, nontender with active bowel sounds. 1+ pedal pulses bilaterally with no edema noted to lower extremities. Hospital Course 02/22/17: ADMIT Tamiflu was started for influenza. The patient required supplemental oxygen to maintain saturations. IV fluids were initiated. Supportive care was provided. Home medications were resumed. Hemoccult was ordered, and noted to be positive. Dr. Rivera and the patient had a risk-benefit discussion regarding Plavix, and the patient elected to continue Plavix, but agreed to hold it for a couple of days. 02/23/17 Patient is improving, but unable to wean off oxygen. Sepsis syndrome has resolved. No further blood was noted in her stool. Dr. Briseno was consulted, and did not recommend any further treatment for her hematochezia. PT and OT were consulted, and the patient did remarkably well with assessment. 02/24/17: DISCHARGE HOME, stable Continues to improve, but unable to be weaned off oxygen. We will send her home with 2 L of continuous oxygen. Chest x-ray was repeated, showing improvement in interstitial markings. We will continue her on 3 more days of Tamiflu to treat influenza. Resume Plavix, patient understands the risks of GI bleeding. Follow- up with Dr. Barrera on March 03 at 11:00am. See discharge instructions for additional details. This is a general summation of the patient's hospital course. Refer to the H&P and progress notes for more information. Time spent in discharge: Greater than 30 minutes. Problems: (1) Acute respiratory failure with hypoxia Status: Acute Assessment & Plan: present on admission. (2) Influenza B Status: Acute (3) Rectal bleed Status: Acute (4) Severe sepsis Status: Resolved Assessment & Plan: present on admission secondary to influenza B as indicated by: * Tachycardia - HR 92. * Tachypnea - RR 32. * Hypoxia - SAO2 701% RA. 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 (9) S/P AVR Status: Chronic (10) Osteoarthritis Status: Chronic (11) GERD (gastroesophageal reflux disease) Status: Chronic (12) Psoriasis Status: Chronic Code Status Do Not Resuscitate Home Meds Active Scripts Oseltamivir Phosphate (Tamiflu) 75 Mg Capsule, 75 MG PO BID, #6 CAP Prov:ROSA ISELA SORIANO MD 02/24/17 Reported Medications Benzonatate (Benzonatate) 100 Mg Capsule, 100 MG PO TID Y for COUGH 02/22/17 Metoprolol Tartrate (Metoprolol Tartrate) 25 Mg Tablet, 25 MG PO BIDWM 02/22/17 Losartan Potassium (Losartan Potassium) 50 Mg Tablet, 50 MG PO DAILY 02/22/17 Guaifenesin (Mucinex) 1,200 Mg Tbbp.12hr, 1200 MG PO DAILY 02/22/17 Albuterol Sulfate (Ventolin HFA 90 mcg/actuation) 18 Gm Hfa.aer.ad, 2 PUFF ORAL INH Q4H Y for SHORTNESS OF AIR/WHEEZING 02/22/17 Atorvastatin Calcium (Atorvastatin Calcium) 40 Mg Tablet, 40 MG PO HS 12/21/16 Furosemide (Furosemide) 20 Mg Tablet, 20 MG PO BID 10/09/15 Clopidogrel Bisulfate (Plavix) 75 Mg Tablet, 75 MG PO DAILY 07/08/15 Amlodipine Besylate (Amlodipine Besylate) 5 Mg Tablet, 5 MG PO DAILY 07/08/15 Omeprazole (Prilosec) 40 Mg Capsule.dr, 40 MG PO DAILY 07/08/15 Potassium Chloride (Potassium Chloride) 20 Meq Tab.prt.sr, 20 MEQ PO BID 07/04/10 Discontinued Reported Medications Cefdinir (Cefdinir) 300 Mg Capsule, 300 MG PO TID 02/22/17 Face to Face Encounter I met with patient on the day of dismissal and discussed follow up appointments , medications, and safety plan. Discharge Disposition Discharged home with home O2, stable Copies To 1: FELIX BARRERA DO Documentation Requirements Documenting Diagnosis Anemia, SIRS Anemia Anemia Etiology: Unable to Determine Anemia Acuity: Chronic SIRS SIRS due to: Infection Reason for SIRS: influenza B ROSA ISELA SORIANO MD 02/24/173: Hospital Course I have independently evaluated and examined this patient. I reviewed the chart, the patient's history, and the BEHAVIORAL HEALTH CONSULTANT's documented findings as above. We discussed and formulated the assessment and plan as above with additions as below: Patient seen earlier today. Doing well but continues to require supplemental oxygen. Respirations were nonlabored when seen-C earlier note in today's progress note. 2 L of supplemental oxygen arranged for discharge and patient to continue course of Tamiflu. Stable for discharge as noted. Problems: Home Meds Active Scripts Oseltamivir Phosphate (Tamiflu) 75 Mg Capsule, 75 MG PO BID, #6 CAP Prov:ROSA ISELA SORIANO MD 02/24/17 Reported Medications Benzonatate (Benzonatate) 100 Mg Capsule, 100 MG PO TID Y for COUGH 02/22/17 Metoprolol Tartrate (Metoprolol Tartrate) 25 Mg Tablet, 25 MG PO BIDWM 02/22/17 Losartan Potassium (Losartan Potassium) 50 Mg Tablet, 50 MG PO DAILY 02/22/17 Guaifenesin (Mucinex) 1,200 Mg Tbbp.12hr, 1200 MG PO DAILY 02/22/17 Albuterol Sulfate (Ventolin HFA 90 mcg/actuation) 18 Gm Hfa.aer.ad, 2 PUFF ORAL INH Q4H Y for SHORTNESS OF AIR/WHEEZING 02/22/17 Atorvastatin Calcium (Atorvastatin Calcium) 40 Mg Tablet, 40 MG PO HS 12/21/16 Furosemide (Furosemide) 20 Mg Tablet, 20 MG PO BID 10/09/15 Clopidogrel Bisulfate (Plavix) 75 Mg Tablet, 75 MG PO DAILY 07/08/15 Amlodipine Besylate (Amlodipine Besylate) 5 Mg Tablet, 5 MG PO DAILY 07/08/15 Omeprazole (Prilosec) 40 Mg Capsule.dr, 40 MG PO DAILY 07/08/15 Potassium Chloride (Potassium Chloride) 20 Meq Tab.prt.sr, 20 MEQ PO BID 07/04/10 Discontinued Reported Medications Cefdinir (Cefdinir) 300 Mg Capsule, 300 MG PO TID 02/22/17 Copies To 1: FELIX BARRERA KAREN D BEHAVIORAL HEALTH CONSULTANT Feb 24, 2017 16:13 ROSA ISELA SORIANO MD Feb 24, 2017 21:23
--- NOTE | 2017-02-25 13:07 | PDONTRACK ---
Right on Track Program Date of Discharge Feb 24, 2017 at 16:37 Scheduled Amlodipine Besylate (Amlodipine Besylate), 5 MG PO DAILY, (Reported) Atorvastatin Calcium (Atorvastatin Calcium), 40 MG PO HS, (Reported) Clopidogrel Bisulfate (Plavix), 75 MG PO DAILY, (Reported) Furosemide (Furosemide), 20 MG PO BID, (Reported) Guaifenesin (Mucinex), 1,200 MG PO DAILY, (Reported) Losartan Potassium (Losartan Potassium), 50 MG PO DAILY, (Reported) Metoprolol Tartrate (Metoprolol Tartrate), 25 MG PO BIDWM, (Reported) Omeprazole (Prilosec), 40 MG PO DAILY, (Reported) Oseltamivir Phosphate (Tamiflu), 75 MG PO BID Potassium Chloride (Potassium Chloride), 20 MEQ PO BID, (Reported) Scheduled PRN Albuterol Sulfate (Ventolin HFA 90 mcg/actuation), 2 PUFF ORAL INH Q4H PRN for SHORTNESS OF AIR/WHEEZING, (Reported) Benzonatate (Benzonatate), 100 MG PO TID PRN for COUGH, (Reported) Discontinued Medications Cefdinir (Cefdinir), 300 MG PO TID, (Reported) Date: Feb 25, 2017 Right on Track Program: 24 Hour Follow-Up Discharge Summary Received: Yes Care Plan Received: Yes Follow up: Follow Up Appt. Scheduled (03/03/[address] Barrera) Education: Diagnosis Ed. Review, Education to [employer] Referrals: Case Management Total LACE Score: 11 Comments PHONE CALL #1: I called Ana on 02/25/17. She stated she's getting along very well. She had no trouble filling the Rx Tamiflu and she's been wearing her oxygen. No reports of black/bloody stool. She is feeling better overall. She has an appt with Dr. Barrera on 03/03/17. She declined the home visit but agreed to weekly phone calls - I informed her that if she changed her mind she can always call us back and I will come and see her. Will follow. Discussed w/pt and caregiver: Yes Problems: (1) Acute respiratory failure with hypoxia Status: Acute Assessment & Plan: present on admission. (2) Influenza B Status: Acute (3) Rectal bleed Status: Acute (4) Severe sepsis Status: Resolved Assessment & Plan: present on admission secondary to influenza B as indicated by: * Tachycardia - HR 92. * Tachypnea - RR 32. * Hypoxia - SAO2 701% RA. 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
== END 2017-02-24 16:37 | disposition home or self-care (01) | DRG 871 ==
LOC: ED 08:32 → EDHOLD 10:23 → MED 11:06
PROVIDERS: ADMIT Internal Medicine; ATTEND Internal Medicine
DX: A41.9 Sepsis, unspecified organism (principal); J96.01 Acute respiratory failure with hypoxia; K62.5 Hemorrhage of anus and rectum; R65.20 Severe sepsis without septic shock; J11.1 Influenza due to unidentified influenza virus with other respiratory manifestations; I10 Essential (primary) hypertension; I25.10 Atherosclerotic heart disease of native coronary artery without angina pectoris; D64.9 Anemia, unspecified; Z66 Do not resuscitate; I73.9 Peripheral vascular disease, unspecified; E78.5 Hyperlipidemia, unspecified; L40.9 Psoriasis, unspecified; M19.91 Primary osteoarthritis, unspecified site; K21.9 Gastro-esophageal reflux disease without esophagitis; K64.9 Unspecified hemorrhoids; K27.9 Peptic ulcer, site unspecified, unspecified as acute or chronic, without hemorrhage or perforation; Z95.1 Presence of aortocoronary bypass graft; Z87.891 Personal history of nicotine dependence
CPT/HCPCS: 36000; 36415; 36416; 80048; 81001; 82272; 83605; 83880; 84145; 84484; 85018; 85025; 85610; 85730; 86850; 86900; 86901; 86920; 86922; 87040; 87400; 87486; 87507; 87581; 87633; 87798; 93005; 94640; 94761; 94762

== ENCOUNTER 2018-04-22 16:15 | Inpatient (IN) ==
[2018-04-21 16:42] VITALS: BMI 21.9
--- NOTE | 2018-04-21 17:32 | History & Physical Report ---
History of Present Illness Date: 04/21/18 Chief complaint: SOA HPI: Patient is an 83yo female who presented to Dr. Jose's office (b/c her PCP, Dr Barrera was out today) for c/o SOA which had been present for approx 5 days. Also c/o loss of appetite. Has noticed over the past 3-4 days she's had more bloating and describes a feeling of "fluid" in her abdomen. Pt lives at home alone. She has O2 available at home if needed and uses it periodically. Today when she went to see Dr Jose, her O2 sat was 75% with no O2. States her wt is usually 138 but today wt is 140. She states she has doubled up on her Bumex a few days lately due to the increasing SOA. She was switched from Lasix to Bumex by her scow hand a few mos ago per her report. Review of Systems All systems PM: 10-point ROS was reviewed, no additional remarkable complaints except (SOA, feeling of fluid in her abdomen/bloating) Past Medical History Medical History: Medical History (Last Reviewed 04/21/18 @ 14:26 by Judy Cancino, [facility]) History of blood transfusion (Resolved) Onset Date: ~12/2010 Prior to heart surgery Gastroparesis (Chronic) History of bleeding ulcers (Resolved) Carotid stenosis (Chronic) COPD (chronic obstructive pulmonary disease) (Chronic) Dyslipidemia (Chronic) Target LDL<70, HDL>40-45, trig<115 CAD (coronary artery disease) (Chronic) CHF (congestive heart failure) (Chronic) Diastolic HTN (hypertension) (Chronic) Medical History Updates: COPD. HTN. HL. CHF. GERD. Hypokalemia Surgical History: Cholecystectomy~1991. Bilat Carotid endarterctomy Rt 06/27, Lft 07/28. Left Carotid Endarterectomy~2006. Rt TKR~2006. Aortic Valve Replacement & CABG x2~01/03. Rt Carotid Endarterectomy~06/02/11. Rt Renal AA Stenting: Dr Kirkpatrick~2012. Carotid Stent placed ~02/04, placed on plavix. Carotid doppler study 05/[address] Silva Family History: Family History Father Heart disease Renal cancer Mother ND Family History Updates: Mother - ND Family History: As Above - Social History Smoking status: Former smoker (quit >40 yrs ago) Substance use type: does not use Alcohol intake frequency: does not drink Housing: house Household members: none Current occupational status: retired [place] Daughter lives next door. 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 Medications Home Medications Medication Instructions Recorded Confirmed Type Acetaminophen 650 mg PO Q4H PRN 11/24/17 04/21/18 History Atorvastatin [Lipitor] 40 mg PO HS 11/24/17 04/21/18 History Metoprolol Tartrate [Lopressor] 25 mg PO BID 11/24/17 04/21/18 History Omeprazole [Omeprazole] 40 mg PO ACB 01/22/18 04/21/18 History Plavix (clopidogrel) 75 mg tablet 75 mg PO DAILY #30 tab 02/15/18 04/21/18 Rx Norvasc (amlodipine) 5 mg tablet 5 mg PO DAILY #30 tab 02/23/18 04/21/18 Rx Klor-Con M20 (potassium chloride 20 meq PO BID #60 tab 03/15/18 04/21/18 Rx ER) 20 mEq tablet,(part/cryst) Bumetanide 2 mg PO BID 04/21/18 04/21/18 History Allergies Allergy/AdvReac Type Severity Reaction Status Date / Time telithromycin Allergy Severe SWELLING Verified 04/21/18 14:25 OF FACE benazepril AdvReac Mild CAUSES DRY Verified 04/21/18 14:25 MOUTH, COUGH amlodipine [From Lotrel] AdvReac Unknown persistent Verified 04/21/18 14:25 cough cefdinir AdvReac Unknown Bleeding Verified 04/21/18 14:25 tetrahydrozoline AdvReac Unknown Verified 04/21/18 14:25 Exam Vital Signs: Temperature 96.3 F L 04/21/18 16:38 Pulse Rate 89 04/21/18 16:38 Respiratory Rate 24 04/21/18 16:38 Blood Pressure 138/54 04/21/18 16:38 Pulse Oximetry 92 04/21/18 16:45 Height/Weight/BMI: Height 1.7 m Weight 63.5 kg Body Mass Index 21.9 - Constitutional Present: no acute distress, well nourished, well developed - Routine HEENT Exam Head: Present: normocephalic, atraumatic Eye: Present: EOMI, PERRL ENT: Present: mucous membranes moist, oropharynx clear - Routine Neck Exam Absent: lymphadenopathy - Routine Respiratory Exam Present: CTA bilaterally. Absent: wheezes - Routine Cardiovascular Exam Present: RRR, murmur - Routine Abdominal Exam Present: soft, normoactive bowel sounds. 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 Bumex 2mg IV x 1 on admission for diuresis. CBC, CMP, BNP, Mag, Troponin, UA, EKG for w-u of dyspnea/hypoxia. Telemetry to monitor for arrhythmia. CBC, BMP in am to follow blood counts, renal function and electrolytes. Measure I&O, daily weights. Fluid restriction. Continue home medications. Meds not reconciled at this time as they were not yet confirmed in the computer. Dr. Coto to reconcile home meds and order further IV diuresis. Patient wishes to be a DNR. Care to return to Dr. Barrera on dismissal. Case discussed with Dr Coto. DVT Prophylaxis: SCD's Resuscitation Status: Do Not Resuscitate - Physician Narrative Physician: Yusuf Coto MD Narrative: Date: 04/21/18 Time: 1944 Have independently interviewed and examined pt. Chart reviewed. Case discussed with my PA. Care plan developed with my supervision; agree with above. Presents to clinic secondary to increasing dyspnea. Feeling progressively more SOA since 04/18. Little cough, some congestion. Increased Bumex to help, but not seeing gains. Ab feels more full and bloated. Appetite decreased. No nausea. Bowel moving. O2 sats decreased in clinic. Lungs: decreased bilaterally, faint bibasilar crackles. CV: regular with ELENA at [facility] AB: soft nt +BS MSE: awake alert appropriate Plan: OBS admission. Will give 2mg IV Bumex tonight. As CO2 showing increase, will give Diamox 500mg x1. Continue home medications except for using IV Bumex in place of oral. Monitor lab. Supplemental O2 as needed - wean as able. Did qualify for home O2 in Nov of this year. PT/OT to see in am to help with her acute cardiopulmonary debility (typically very active and functional). Hospital Course Summary Disclaimer: The visit summary below is not to be considered part of the above Progress Note. Hospital Course: 04/21/18 Admit, OBS. Bumex 2mg IV x 1 on admission for diuresis. Will give Diamox 500mg x1 as CO2 elevated at 35. CBC, CMP, BNP, Mag, Troponin, UA, EKG for w-u of dyspnea/hypoxia. Telemetry to monitor for arrhythmia. Measure I&O, daily weights. Fluid restriction. Continue home medications. Meds not reconciled at this time as they were not yet confirmed in the computer. Dr. Coto to reconcile home meds and order further IV diuresis. Patient wishes to be a DNR. Care to return to Dr. Barrera on dismissal.
[2018-04-21] MEDS: --POM--ATORVASTATIN 40 MG TABLET PO SCH (20:10)
[2018-04-21] MEDS: --POM--METOPROLOL TARTRATE 25mg TABLET PO SCH (20:10)
[2018-04-22] MEDS: --POM--METOPROLOL TARTRATE 25mg TABLET PO SCH ×2 (08:36→21:10)
[2018-04-22] MEDS: --POM--CLOPIDOGREL 75 MG TABLET PO SCH (08:36)
[2018-04-22] MEDS: --POM--AMLODIPINE 5 MG TABLET PO SCH (08:36)
--- NOTE | 2018-04-22 14:09 | Progress Note ---
- Date 04/22/18 Subjective: Ana is seen today in follow up. She is feeling tired today, as she was up frequently at night. RN reports that she has been urinating frequently, and in only small amounts. Bladder scan was ordered, and residual > 400 noted. SC completed, which confirmed the >400 ml residual. Her SOA is improving. Weight is down about 1 kg. O2 is 96% on 1-2L/NC. Objective Vital signs: Temperature 95.8 F L 04/22/18 07:32 Pulse Rate 66 04/22/18 07:46 Respiratory Rate 16 04/22/18 07:32 Blood Pressure 149/57 H 04/22/18 07:32 Pulse Oximetry 96 04/22/18 07:32 Rhythm: Normal Sinus Rhythm Height/Weight/BMI: Height 1.7 m Weight 62.4 kg Body Mass Index 21.9 - Constitutional Present: no acute distress, average body habitus, cooperative - Routine HEENT Exam Head: Present: normocephalic, atraumatic Eye: Present: EOMI, PERRL ENT: Present: mucous membranes moist - Routine Respiratory Exam Present: CTA bilaterally, diminished air movement (Bases. ). Absent: rales, rhonchi, crackles - Routine Cardiovascular Exam Present: RRR, S1, S2, murmur (+ murmur, 3/6) - Routine Abdominal Exam Present: soft, normoactive bowel sounds, non distended, non tender - Routine Extremities Exam Present: no edema (No pedal edema noted. ), pulses intact - Routine Musculoskeletal Exam Musculoskeletal: Present: normal strength, moving extremities well - Routine Skin Exam Present: intact, dry, warm - Routine Neurological Exam Present: alert, oriented X3, moving all extremities - Routine Psychiatric Exam Present: normal affect, normal thought process, cooperative Results - Labs CBC & Chem 7: 04/22/18 04:49 04/22/18 04:49 - Echocardiogram History of Echocardiogram: IMPRESSION. 1. Left atrial enlargement. 2. Normal LV size, systolic and diastolic function parameters, EF of 70%, E/A ratio of 1.8, MVDT 280 milliseconds. 3. Mild (eccentric) mitral regurgitation. 4. Bioprosthesis in the aortic position with hemodynamics of moderate stenosis. This may be normal for a prosthetic valve. Compare with previous hemodynamics of this valve. 5. Mild mitral regurgitation. 6. Mitral annular calcification and leaflet sclerosis. 7. Mild mitral stenosis. 8. Right-sided pleural effusion. 9. Mild pulmonary hypertension. 10. Normal central venous pressure. - Imaging and Cardiology Chest x-ray Additional comments: Impression: Mild CHF with a stable small right effusion. . 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 She does have chronic O2 at home, so unclear on what her baseline O2 is. Continue diuresis. Will change back to PO Bumex 2mg BID and monitor overnight. Could consider adding Metolazone 2.5mg PO for rescue dose. Will need fluid restriction given known A.S. Continue BB. She is on amlodipine at home, so question if this is true allergy. No BESSY due to pEF, as well as allergy. Consider referral for additional HF teaching management. Repeat labs in AM. Possible dismissal to home tomorrow, depending on how she is feeling. TEGAN Patient with persistent pulmonary edema/hypoxia without sufficient improvement with outpatient treatment. Continued need for IV diuresis. Will change to inpatient admission to continue care outside of scope of obs. Change Bumex to 2mg IV BID. Diamox 500mg given this am due to increased CO2, dose repeated this afternoon. Will give additional oral potassium this evening. DVT Prophylaxis: SCD's Resuscitation Status: Do Not Resuscitate - Time spent with patient Time with patient PN: 25 minutes - Physician Narrative Physician: Yusuf Coto MD Narrative: Date: 04/22/18 Time: 1620 Have independently interviewed and examined pt. Chart reviewed. Case discussed with CM and my FISH HATCHERY SPECIALIST. Care plan developed with my supervision; agree with above. Doing fair today. Still feels winded and SOA-needing O2. Increased urinary output with IV Bumex. Weight trending down. Output exceeding intake. Potassium with decrease to 3.6 secondary to IV Bumex and wasting of fluid. Has been up and ambulating. Eating well. Ab still feels full. Lungs: decreased bilaterally, right basilar crackles. CV: regular AB: soft nt/ nd MSE: awake alert appropriate Plan: Patient with persistent pulmonary edema/hypoxia without sufficient improvement with outpatient treatment. Continued need for IV diuresis. Will change to inpatient admission to continue care outside of scope of obs. Change Bumex to 2mg IV BID. Diamox 500mg given this am due to increased CO2, dose repeated this afternoon. Additional oral potassium this evening. Encourage ambulation. Wean O2. Will recheck lab and CXR in am secondary to diuresis. Discussed with family. Hospital Course Summary Disclaimer: The visit summary below is not to be considered part of the above Progress Note. Hospital Course: 04/21/18 Admit, OBS. Bumex 2mg IV x 1 on admission for diuresis. Will give Diamox 500mg x1 as CO2 elevated at 35. CBC, CMP, BNP, Mag, Troponin, UA, EKG for w-u of dyspnea/hypoxia. Telemetry to monitor for arrhythmia. Measure I&O, daily weights. Fluid restriction. Continue home medications. Meds not reconciled at this time as they were not yet confirmed in the computer. Dr. Coto to reconcile home meds and order further IV diuresis. Patient wishes to be a DNR. Care to return to Dr. Barrera on dismissal. 04/22/18 Patient with persistent pulmonary edema/hypoxia without sufficient improvement with outpatient treatment. Continued need for IV diuresis. Will change to inpatient admission to continue care outside of scope of obs. Will need ongoing monitoring for CHF exacerbation, mild. She does have chronic O2 at home, so unclear on what her baseline O2 is. Continue diuresis. Will Bumex 2mg IV BID and monitor overnight. Diamox 500mg given this am due to increased CO2, dose repeated this afternoon. Could consider adding Metolazone 2.5mg PO for rescue dose. Will need fluid restriction given known A.S. Continue BB. She is on amlodipine at home, so question if this is true allergy. No BESSY due to pEF, as well as allergy. Consider referral for additional HF teaching management. Addendum entered and electronically signed by Chelsea Hutchinson APRN 04/22/18 14:16 : Urinary retention- Straight cath x1. Recheck later today. May need engle if retention persists.
[~2018-04-22 16:15] MED LIST changes: +ACETAMINOPHEN 325 MG TABLET PO PRN; -ALBU18HF2 ORAL INH; -AMLO5TAB2 PO; -ATOR40TA64 PO; +BISACODYL 10 MG SUPPOSITORY RECTALLY PRN; +BUMETANIDE 2.5mg/10ml INJECTION IVP SCH; -CLOP75TA PO; -DOCU-168 PO; -FURO20TA4 PO; -GUAI-782 PO; -LEVO750T20 PO; -LOSA50TA52 PO; -MAGN400O4 PO; -METO25TA6 PO; +NON-FORMULARY MEDICATION 1 EACH EACH (Omeprazole [Omeprazole] 40 MG) PO SCH; -OMEP40CA PO; +OMEPRAZOLE 20 MG CAPSULE PO SCH; +ONDANSETRON ODT 4 MG TABLET PO PRN; -POTA20TA69 PO; -PRED20TA PO; +PROCHLORPERAZINE 10 MG/2 ML INJECTION IVP PRN; +acetaZOLAMIDE 250 MG TABLET PO ONE; +acetaZOLAMIDE SR 500 MG CAPSULE PO ONE
[2018-04-22 16:16] VITALS: RESP 18
[2018-04-22] MEDS ORDERED: BUMETANIDE 1 MG TABLET PO SCH (17:00)
[2018-04-22] MEDS: --POM--ATORVASTATIN 40 MG TABLET PO SCH (21:10)
[2018-04-23] MEDS ORDERED: OMEPRAZOLE 40 MG PO SCH (06:30)
[2018-04-23 07:36] VITALS: BP 126/51; PULSE 65; TEMP 96.1
[2018-04-23 08:09] VITALS: O2SAT 92
--- NOTE | 2018-04-23 08:43 | XRay Report ---
INDICATION: CHF PROCEDURE: CHEST 2-VIEWS UPRIGHT (PA & LAT) Encounter: Initial COMPARISON: April 21, 2018 FINDINGS: Congestive failure has improved with decreasing right pleural effusion and improving aeration of the right lower lobe. Hyperinflation. No pneumothorax. Left lung is clear. Heart size and mediastinal contours are stable. Impression: Improving congestive failure. .
[2018-04-23] MEDS: --POM--METOPROLOL TARTRATE 25mg TABLET PO SCH (08:59)
[2018-04-23] MEDS: --POM--CLOPIDOGREL 75 MG TABLET PO SCH (08:59)
[2018-04-23] MEDS: --POM--AMLODIPINE 5 MG TABLET PO SCH (08:59)
--- NOTE | 2018-04-23 13:35 | Discharge Summary ---
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 Jose's office (b/c her PCP, Dr Barrera was out today) for c/o SOA which had been present for approx 5 days. Also c/o loss of appetite. Has noticed over the past 3-4 days she's had more bloating and describes a feeling of "fluid" in her abdomen. Pt lives at home alone. She has O2 available at home if needed and uses it periodically. Today when she went to see Dr Jose, her O2 sat was 75% with no O2. States her wt is usually 138 but today wt is 140. She states she has doubled up on her Bumex a few days lately due to the increasing SOA. She was switched from Lasix to Bumex by her plaster mechanic a few mos ago per her report. For complete details of the H&P refer to that document. Objective Vital signs: Temperature 96.1 F L 04/23/18 07:34 Pulse Rate 65 04/23/18 07:36 Respiratory Rate 18 04/23/18 07:34 Blood Pressure 126/51 04/23/18 07:34 Pulse Oximetry 92 04/23/18 08:08 Rhythm: Normal Sinus Rhythm Height/Weight/BMI: Height 1.7 m Weight 61.3 kg Body Mass Index 21.9 - Constitutional Present: no acute distress, well nourished, well developed - Routine HEENT Exam Eye: Present: EOMI ENT: Present: mucous membranes moist, dentition normal - Routine Respiratory Exam Present: CTA bilaterally. Absent: wheezes - Routine Cardiovascular Exam Present: RRR, S1, S2. Absent: murmur - Routine Abdominal Exam Present: soft, normoactive bowel sounds, non distended. Absent: tenderness - Routine Extremities Exam Present: no edema, normal capillary refill - Routine Back/Spine/Pelvis Exam Back/Spine: Present: full ROM - Routine Skin Exam Present: intact, dry, warm - Routine Neurological Exam Present: alert, oriented X3, CN II-XII intact - Routine Lymphatic Exam Lymphatic: Absent: adenopathy - Routine Psychiatric Exam Present: normal affect, cooperative Hospital Course This is a general summary of the patient's hospital course. For more details refer to the complete medical record. Hospital course: 04/21/18 Admit, OBS. Bumex 2mg IV x 1 on admission for diuresis. Will give Diamox 500mg x1 as CO2 elevated at 35. CBC, CMP, BNP, Mag, Troponin, UA, EKG for w-u of dyspnea/hypoxia. Telemetry to monitor for arrhythmia. Measure I&O, daily weights. Fluid restriction. Continue home medications. Meds not reconciled at this time as they were not yet confirmed in the computer. Dr. Coto to reconcile home meds and order further IV diuresis. Patient wishes to be a DNR. Care to return to Dr. Barrera on dismissal. 04/22/18 Patient with persistent pulmonary edema/hypoxia without sufficient improvement with outpatient treatment. Continued need for IV diuresis. Will change to inpatient admission to continue care outside of scope of obs. Will need ongoing monitoring for CHF exacerbation, mild. She does have chronic O2 at home, so unclear on what her baseline O2 is. Continue diuresis. Will Bumex 2mg IV BID and monitor overnight. Diamox 500mg given this am due to increased CO2, dose repeated this afternoon. Could consider adding Metolazone 2.5mg PO for rescue dose. Will need fluid restriction given known A.S. Continue BB. She is on amlodipine at home, so question if this is true allergy. No BESSY due to pEF, as well as allergy. Consider referral for additional HF teaching management. 04/23/18- Discharge Ana is seen and examined prior to discharge. She is napping in the chair however easily awakes. Her daughters are at her side. Overall she is feeling good. She is currently on 1 liter of oxygen and daughters report she often needs it when sleeping. While awake she has been on room air. She does have oxygen at home and will continue to use it as needed. Daughters and patient feel that they know when she needs oxygen. Chest x-ray this morning does reveal improvement in congestive failure. We'll continue patient on her normal regimen of Bumex twice a day with potassium twice a day for supplementation. All other medications will continue to remain the same. Did recommend that patient follow up with primary care provider, Dr. Barrera in 1 week. That time have a BMP to monitor electrolytes. Patient will return home independently and she does have a daughter that lives next door to help care for her. Time spent with patient: discharge greater than 30 minutes Resuscitation Status: Do Not Resuscitate Discharge Plan - Discharge Disposition Discharge Date: 04/23/18 Disposition: Discharged Home, Self-Care *Condition: Stable Reason For Visit (Visit label in EMR): dyspnea - Discharge Medications *Discharge Medications: Continue Atorvastatin [Lipitor] 40 mg PO HS Acetaminophen 650 mg PO Q4H PRN PRN Reason: Pain Bumetanide 2 mg PO BID Metoprolol Tartrate [Lopressor] 25 mg PO BID Omeprazole 40 mg PO ACB Norvasc (amlodipine) 5 mg tablet 5 mg PO DAILY #30 tab Klor-Con M20 (potassium chloride ER) 20 mEq tablet,(part/cryst) 20 meq PO BID #60 tab Plavix (clopidogrel) 75 mg tablet 75 mg PO DAILY #30 tab - Discharge Packet/Instructions *Diet: regular diet *Activity: Activity as tolerated *Pain Management/Treatment: Tylenol as needed *Wound Care: None Additional Instructions: Continue on usual home dose of Bumex and Potassium. Your electrolyte labs are normal. Follow up with Dr Barrera next week. Have BMP at that time. Use oxygen 1 Liter as needed at home *Expected Signs/Symptoms: Continued improvement in breathing *Notify Physician if: Worsening shortness of breath, chest pain, fever *During Business Hours Contact: Contact PCP Dr Barrera *After Business Hours Contact: Page oncall physician *Pending Lab/Results: No Pending Lab - Referrals/Follow Up *Referrals/Follow Up: Ike Barrera DO [Primary Care Provider] - (Please schedule follow up apt for 1 week) - Patient Handouts Patient Handouts: Heart Failure (DC), Shortness of Breath (GEN) - Dismissal Complete Discharge Instructions are:: Complete Physician Narrative - Narrative Physician: Yusuf Coto MD Attestation Narrative: Date: 04/23/18 Time: 1748 I have independently interviewed and examined patient prior to discharge. Chart reviewed. Case discussed with CM and my [employer] OFFICER. Care plan developed with my supervision; agree with above. Doing well today. Breathing feels easier-less congested and SOA. Ambulating well. Not feeling weak/unsteady with positional changes. Eating well. Feels ready to go home. Lungs: decreased, no distress CV: regular AB: soft nt/nd MSE: awake alert appropriate Plan: Medically stable for discharge to home. See orders for details.
== END 2018-04-23 14:30 | disposition home or self-care (01) | DRG 292 ==
LOC: MED
PROVIDERS: ADMIT Hospitalist; ATTEND Hospitalist